=== PATIENT | male | born 1945 | race African-American/Black ===

== ENCOUNTER 2021-11-12 04:36 | Day surgery (SDC) | payer OTHER ==
[2021-11-10 13:51] VITALS: BMI 31.6
[2021-11-12 09:48] VITALS: TEMP 97.8
[2021-11-12 12:23] LABS: INR 1.27 (0.83-1.09); PROTHROMBIN TIME (PATIENT) 14.6 SEC (9.7-13.0)
[2021-11-12] MEDS ORDERED: ACETAMINOPHEN 325 MG TABLET (FP) PO ONE (13:30)
[2021-11-12 14:38] LABS: BF GLUCOSE (CSF ONLY) 96 mg/dL (40-70)
[2021-11-12 15:18] LABS: CSF APPEARANCE CLEAR (CLEAR); CSF COLOR COLORLESS (COLORLESS)
[2021-11-12 15:19] LABS: CSF WBC 1 mm3 (0-5)
[2021-11-12 15:26] VITALS: RESP 20
[2021-11-12 15:35] VITALS: BP 156/96; PULSE 79
[2021-11-16 17:07] LABS: ALBUMIN SERUM 4.1 g/dL (3.7-4.7); CSF IGG INDEX 0.3 (0.0-0.7); IGG CSF. 4.5 mg/dL (0.0-10.3); IGG/ALB RATIO CSF 0.12 (0.00-0.25); MYELIN BASIC PROTEIN,CSF 9.8 ng/mL (0.0-5.4)
== END 2021-11-12 15:05 | disposition home or self-care (01) ==
LOC: JRADIR 04:36
PROVIDERS: ATTEND Internal Medicine
PROC: 009U3ZX Drainage of Spinal Canal, Percutaneous Approach, Diagnostic (ICD-10-PCS; principal; 2021-11-12)
DX: G62.9 Polyneuropathy, unspecified (principal)
CPT/HCPCS: 36415; 62272; 82784; 82787; 82945; 83873; 83916; 84157; 85610

== ENCOUNTER 2022-01-14 08:25 | Day surgery (SDC) | payer OTHER ==
[2022-01-14] MEDS ORDERED: ACETAMINOPHEN 325 MG TABLET (FP) PO ONE (10:00)
[2022-01-14] MEDS ORDERED: diphenhydrAMINE HCL 25 MG CAPSULE (FP) PO ONE (10:00)
[2022-01-14] MEDS ORDERED: IMMUN GLOB G(IGG)/PRO/IGA 0-50 600 ML, IMMUN GLOB G(IGG)/PRO/IGA 0-50 100 ML IVPB ONE (10:30)
[2022-01-14 11:38] VITALS: RESP 20
[2022-01-14 11:39] VITALS: TEMP 97.8
[2022-01-14 16:34] VITALS: BP 147/89; PULSE 72
== END 2022-01-14 16:30 ==
LOC: JINFUSION 08:25 → J7W 08:25 → JINFUSION 16:30
PROVIDERS: ATTEND Psychiatry & Neurology Psychiatry
PROC: 3E033GC Introduction of Other Therapeutic Substance into Peripheral Vein, Percutaneous Approach (ICD-10-PCS; principal; 2022-01-14)
DX: G61.81 Chronic inflammatory demyelinating polyneuritis (principal)
CPT/HCPCS: 96365; 96366; J1459

== ENCOUNTER 2022-01-15 08:24 | Day surgery (SDC) | payer OTHER ==
[2022-01-15] MEDS ORDERED: diphenhydrAMINE HCL 25 MG CAPSULE (FP) PO ONE (09:30)
[2022-01-15] MEDS ORDERED: ACETAMINOPHEN 325 MG TABLET (FP) PO ONE (09:30)
[2022-01-15] MEDS ORDERED: IMMUN GLOB G(IGG)/PRO/IGA 0-50 600 ML, IMMUN GLOB G(IGG)/PRO/IGA 0-50 100 ML IVPB ONE (10:00)
[2022-01-15 16:25] VITALS: TEMP 98.4
[2022-01-15 17:56] VITALS: BP 188/106; PULSE 78; RESP 18
== END 2022-01-15 17:15 | disposition home or self-care (01) ==
LOC: JINFUSION 08:24 → J7W 08:24 → JINFUSION 17:15
PROVIDERS: ATTEND Psychiatry & Neurology Psychiatry
PROC: 3E033GC Introduction of Other Therapeutic Substance into Peripheral Vein, Percutaneous Approach (ICD-10-PCS; principal; 2022-01-15)
DX: G61.81 Chronic inflammatory demyelinating polyneuritis (principal)
CPT/HCPCS: 96365; 96366; J1459

== ENCOUNTER 2022-02-18 09:28 | Day surgery (SDC) | payer OTHER ==
[2022-02-18] MEDS ORDERED: ACETAMINOPHEN 325 MG TABLET (FP) PO ONE (09:30)
[2022-02-18] MEDS ORDERED: diphenhydrAMINE HCL 25 MG CAPSULE (FP) PO ONE (09:30)
[2022-02-18] MEDS ORDERED: IMMUN GLOB G(IGG)/PRO/IGA 0-50 600 ML, IMMUN GLOB G(IGG)/PRO/IGA 0-50 100 ML IVPB ONE (10:00)
[2022-02-18 16:06] VITALS: TEMP 97.7
[2022-02-18 17:21] VITALS: BP 171/96; PULSE 75; RESP 20
== END 2022-02-18 17:05 | disposition home or self-care (01) ==
LOC: JINFUSION 09:28 → J7W 09:29 → JINFUSION 17:05
PROVIDERS: ATTEND Psychiatry & Neurology Psychiatry
PROC: 3E033GC Introduction of Other Therapeutic Substance into Peripheral Vein, Percutaneous Approach (ICD-10-PCS; principal; 2022-02-18)
DX: G61.81 Chronic inflammatory demyelinating polyneuritis (principal)
CPT/HCPCS: 96365; 96366; J1459

== ENCOUNTER 2022-02-19 08:03 | Day surgery (SDC) | payer OTHER ==
[2022-02-19] MEDS ORDERED: ACETAMINOPHEN 325 MG TABLET (FP) PO ONE (09:30)
[2022-02-19] MEDS ORDERED: diphenhydrAMINE HCL 25 MG CAPSULE (FP) PO ONE (09:30)
[2022-02-19] MEDS ORDERED: IMMUN GLOB G(IGG)/PRO/IGA 0-50 600 ML, IMMUN GLOB G(IGG)/PRO/IGA 0-50 100 ML IVPB ONE (10:00)
[2022-02-19 16:12] VITALS: PULSE 72; RESP 20; TEMP 98
[2022-02-19 16:22] VITALS: BP 161/96
== END 2022-02-19 15:25 | disposition home or self-care (01) ==
LOC: JINFUSION 08:03 → J7W 08:27 → JINFUSION 15:25
PROVIDERS: ATTEND Psychiatry & Neurology Psychiatry
PROC: 3E033GC Introduction of Other Therapeutic Substance into Peripheral Vein, Percutaneous Approach (ICD-10-PCS; principal; 2022-02-19)
DX: G61.81 Chronic inflammatory demyelinating polyneuritis (principal)
CPT/HCPCS: 96365; 96366; J1459

== ENCOUNTER 2022-03-25 08:15 | Day surgery (SDC) | payer OTHER ==
[2022-03-25] MEDS ORDERED: diphenhydrAMINE HCL 25 MG CAPSULE (FP) PO ONE (09:30)
[2022-03-25] MEDS ORDERED: ACETAMINOPHEN 325 MG TABLET (FP) PO ONE (09:30)
[2022-03-25] MEDS ORDERED: IMMUN GLOB G(IGG)/PRO/IGA 0-50 600 ML, IMMUN GLOB G(IGG)/PRO/IGA 0-50 100 ML IVPB ONE (10:00)
[2022-03-25 17:30] VITALS: RESP 20; TEMP 98.1
[2022-03-25 17:36] VITALS: BP 135/84; PULSE 75
== END 2022-03-25 17:25 | disposition home or self-care (01) ==
LOC: JINFUSION 08:15 → J7W 08:16 → JINFUSION 17:25
PROVIDERS: ATTEND Psychiatry & Neurology Psychiatry
PROC: 3E033GC Introduction of Other Therapeutic Substance into Peripheral Vein, Percutaneous Approach (ICD-10-PCS; principal; 2022-03-25)
DX: G61.81 Chronic inflammatory demyelinating polyneuritis (principal)
CPT/HCPCS: 96365; 96366; J1459

== ENCOUNTER 2022-03-26 08:16 | Day surgery (SDC) | payer OTHER ==
[2022-03-26] MEDS ORDERED: ACETAMINOPHEN 325 MG TABLET (FP) PO ONE (09:30)
[2022-03-26] MEDS ORDERED: diphenhydrAMINE HCL 25 MG CAPSULE (FP) PO ONE (09:30)
[2022-03-26] MEDS ORDERED: IMMUN GLOB G(IGG)/PRO/IGA 0-50 600 ML, IMMUN GLOB G(IGG)/PRO/IGA 0-50 100 ML IVPB ONE (10:00)
[2022-03-26 18:46] VITALS: TEMP 98.2
[2022-03-26 18:59] VITALS: BP 142/84; PULSE 74; RESP 18
== END 2022-03-26 17:25 | disposition home or self-care (01) ==
LOC: JINFUSION 08:16 → J7W 08:17 → JINFUSION 17:25
PROVIDERS: ATTEND Psychiatry & Neurology Psychiatry
PROC: 3E033GC Introduction of Other Therapeutic Substance into Peripheral Vein, Percutaneous Approach (ICD-10-PCS; principal; 2022-03-26)
DX: G61.81 Chronic inflammatory demyelinating polyneuritis (principal)
CPT/HCPCS: 96365; 96366; J1459

== ENCOUNTER 2022-04-29 07:40 | Day surgery (SDC) | payer OTHER ==
[2022-04-29] MEDS ORDERED: diphenhydrAMINE HCL 25 MG CAPSULE (FP) PO ONE (08:30)
[2022-04-29] MEDS ORDERED: ACETAMINOPHEN 325 MG TABLET (FP) PO ONE (08:30)
[2022-04-29] MEDS ORDERED: IMMUN GLOB IVPB ONE (09:00)
[2022-04-29] MEDS ORDERED: [UNRECOGNIZED DRUG - OTHER] IVPB ONE (09:00)
[2022-04-29] MEDS ORDERED: PRO IVPB ONE (09:00)
[2022-04-29] MEDS ORDERED: IGA IVPB ONE (09:00)
[2022-04-29 14:58] VITALS: RESP 20
[2022-04-29 17:26] VITALS: BP 173/106; PULSE 72; TEMP 98.1
== END 2022-04-29 17:15 | disposition home or self-care (01) ==
LOC: JINFUSION 07:40
PROVIDERS: ATTEND Psychiatry & Neurology Psychiatry
PROC: 3E033GC Introduction of Other Therapeutic Substance into Peripheral Vein, Percutaneous Approach (ICD-10-PCS; principal; 2022-04-29)
DX: G61.81 Chronic inflammatory demyelinating polyneuritis (principal)
CPT/HCPCS: 96365; 96366; J1459

== ENCOUNTER 2022-04-30 07:31 | Day surgery (SDC) | payer OTHER ==
[2022-04-30] MEDS ORDERED: diphenhydrAMINE HCL 25 MG CAPSULE (FP) PO ONE (09:00)
[2022-04-30] MEDS ORDERED: ACETAMINOPHEN 325 MG TABLET (FP) PO ONE (09:00)
[2022-04-30] MEDS ORDERED: IMMUN GLOB G(IGG)/PRO/IGA 0-50 400 ML, IMMUN GLOB G(IGG)/PRO/IGA 0-50 200 ML, IMMUN GLOB G IVPB ONE (09:30)
[2022-04-30 16:17] VITALS: TEMP 98
[2022-04-30 16:23] VITALS: BP 140/87; PULSE 73; RESP 18
== END 2022-04-30 16:26 | disposition home or self-care (01) ==
LOC: JINFUSION 07:31 → J7W 07:36 → JINFUSION 16:26
PROVIDERS: ATTEND Psychiatry & Neurology Psychiatry
PROC: 3E033GC Introduction of Other Therapeutic Substance into Peripheral Vein, Percutaneous Approach (ICD-10-PCS; principal; 2022-04-30)
DX: G61.81 Chronic inflammatory demyelinating polyneuritis (principal)
CPT/HCPCS: 96365; 96366; 96372; J1459

== ENCOUNTER 2022-06-03 07:33 | Day surgery (SDC) | payer OTHER ==
[2022-06-03] MEDS ORDERED: ACETAMINOPHEN 325 MG TABLET (FP) PO ONE (08:00)
[2022-06-03] MEDS ORDERED: diphenhydrAMINE HCL 25 MG CAPSULE (FP) PO ONE (08:00)
[2022-06-03] MEDS ORDERED: PRO IVPB ONE ×2 (08:15)
[2022-06-03] MEDS ORDERED: [UNRECOGNIZED DRUG - OTHER] IVPB ONE ×2 (08:15)
[2022-06-03] MEDS ORDERED: IMMUN GLOB IVPB ONE ×2 (08:15)
[2022-06-03] MEDS ORDERED: IGA IVPB ONE ×2 (08:15)
[2022-06-03 18:33] VITALS: TEMP 97.3
[2022-06-03 18:39] VITALS: BP 142/94; PULSE 72; RESP 18
== END 2022-06-03 17:15 | disposition home or self-care (01) ==
LOC: JINFUSION 07:33
PROVIDERS: ATTEND Psychiatry & Neurology Psychiatry
PROC: 3E033GC Introduction of Other Therapeutic Substance into Peripheral Vein, Percutaneous Approach (ICD-10-PCS; principal; 2022-06-03)
DX: G61.81 Chronic inflammatory demyelinating polyneuritis (principal)
CPT/HCPCS: 96365; 96366; J1459

== ENCOUNTER 2022-06-04 07:37 | Day surgery (SDC) | payer OTHER ==
[~2022-06-04 07:37] MED LIST: diphenhydrAMINE HCL 25 MG CAPSULE (FP) PO ONE
[2022-06-04] MEDS ORDERED: IMMUN GLOB IVPB ONE (09:00)
[2022-06-04] MEDS ORDERED: ACETAMINOPHEN 325 MG TABLET (FP) PO ONE (09:00)
[2022-06-04] MEDS ORDERED: PRO IVPB ONE (09:00)
[2022-06-04] MEDS ORDERED: [UNRECOGNIZED DRUG - OTHER] IVPB ONE (09:00)
[2022-06-04] MEDS ORDERED: IGA IVPB ONE (09:00)
[2022-06-04] MEDS ORDERED: diphenhydrAMINE HCL 25 MG CAPSULE (FP) PO ONE (09:00)
[2022-06-04 18:58] VITALS: PULSE 73; TEMP 98.1
[2022-06-04 19:02] VITALS: BP 159/56; RESP 18
== END 2022-06-04 17:25 | disposition home or self-care (01) ==
LOC: JINFUSION 07:37
PROVIDERS: ATTEND Psychiatry & Neurology Psychiatry
PROC: 3E033GC Introduction of Other Therapeutic Substance into Peripheral Vein, Percutaneous Approach (ICD-10-PCS; principal; 2022-06-04)
DX: G61.81 Chronic inflammatory demyelinating polyneuritis (principal)
CPT/HCPCS: 96365; 96366; J1459

== ENCOUNTER 2022-07-09 19:48 | Inpatient (IN) | payer OTHER ==
[2022-07-09 21:43] LABS: BASO % 0.1 % (0-2.0); EOS % 0.1 % (0-4.5); HEMATOCRIT 31.9 % (35.4-49); HEMOGLOBIN 10.5 GM/dL (11.7-16.9); LYMPH % 5.1 % (8-40); MCH 26.2 pg (25.7-33.7); MEAN CELL VOLUME 79.5 fl (80-96); MEAN PLT VOLUME 9.1 fl (7.5-11.1); MONO % 9.2 % (3.8-10.2); NEUT % 85.5 % (42.8-82.8); PLATELET COUNT 133 10^3/uL (134-434); RBC 4.02 M/mm3 (4.00-5.60); RDW 17.4 % (11.9-15.9); WHITE BLOOD COUNT 8.3 K/mm3 (4.0-10.0)
[2022-07-09 21:50] LABS: INR 1.58 (0.83-1.09); PROTHROMBIN TIME (PATIENT) 18.2 SEC (9.7-13.0)
[2022-07-09 21:53] LABS: ACTIVATED PTT 30.3 SECONDS (25.2-36.5)
[2022-07-09 22:03] LABS: POTASSIUM 4.5 mmol/L (3.5-5.1)
[2022-07-09 22:05] LABS: ALBUMIN 2.6 g/dl (3.4-5.0); BLOOD UREA NITROGEN 23.1 mg/dL (7-18); CALCIUM 8.2 mg/dL (8.5-10.1)
[2022-07-09 22:10] LABS: BILIRUBIN,TOTAL 0.5 mg/dL (0.2-1); TOT PROT 9.5 g/dl (6.4-8.2)
[2022-07-09 22:13] LABS: N-TERMINAL BNP 2314.4 pg/ml (5-450)
[2022-07-09] MEDS ORDERED: ACETAMINOPHEN 1000 MG/100 ML BAG IVPB ONE (22:36)
[2022-07-09] MEDS ORDERED: VANCOMYCIN/WATER 2 GM/400 ML PREMIX BAG (RESTRICTED TO ID ONLY) IVPB ONE (23:00)
[2022-07-09] MEDS ORDERED: PIPERACILLIN/TAZOB 4.5 GM 4.5 GM in DEXTROSE 5%-WATER 100 ML IVPB ONE (23:00)
[2022-07-09] MEDS ORDERED: ACETAMINOPHEN INJECTION 100 ML IVPB ONE (23:07)
[2022-07-09 23:23] LABS: EPI CELLS 6 /uL (0-25.1); HYALINE CASTS 2 /uL (0-3.1); PH,URINE 5.5 (5.0-8.0); URINE APPEARANCE CLOUDY; URINE BACTERIA >9,000 /uL (0-1359); URINE BILIRUBIN NEGATIVE (NEGATIVE); URINE COLOR DK YELLOW; URINE GLUCOSE (UA) NEGATIVE (NEGATIVE); URINE KETONE NEGATIVE (NEGATIVE); URINE LEUK ESTERASE 2+ (NEGATIVE); URINE NITRITE POSITIVE (NEGATIVE); URINE PROTEIN 2+ (NEGATIVE); URINE WBC 1413 /uL (0-25.8)
[2022-07-09 23:24] LABS: URINE RBC 46.1 /uL (0-23.9)
[2022-07-10] MEDS ORDERED: VANCOMYCIN/WATER 2 GRAMS 2,000 MG/400 ML PIGGYBACK IVPB ONE
[2022-07-10 01:24] LABS: VENOUS BASE EXCESS 3.7 mmol/L (-2-2); VENOUS O2 SATURATION 93.1 % (70-80); VENOUS PH 7.278 (7.310-7.410)
[2022-07-10 01:25] LABS: VENOUS PCO2 70.2 mmHg (38-52)
[2022-07-10 06:38] LABS: ARTERIAL BLD GAS O2 SATURATION 99.3 % (95-98); ARTERIAL BLOOD GAS BASE EXCESS 4.5 mmol/L (-2-2); ARTERIAL BLOOD GAS PO2 224.1 mmHg (80-100); ARTERIAL BLOOD GAS pH 7.263 (7.350-7.450)
[2022-07-10] MEDS ORDERED: ALBUTEROL SO4 2.5/IPRATROPIUM 0.5 INH SOL 3 ML VIAL.NEB. NEB PRN (06:41)
[2022-07-10 06:43] LABS: ALLENS TEST POSITIVE
[2022-07-10 06:44] LABS: VENT MODE S/T; VENT RATE 12
[2022-07-10 07:00] LABS: BASO % 0.2 % (0-2.0); EOS % 0.7 % (0-4.5); HEMATOCRIT 30.6 % (35.4-49); HEMOGLOBIN 10.6 GM/dL (11.7-16.9); LYMPH % 12.7 % (8-40); MCH 27.2 pg (25.7-33.7); MCHC 34.4 g/dl (32.0-35.9); MEAN CELL VOLUME 78.9 fl (80-96); MEAN PLT VOLUME 9.1 fl (7.5-11.1); MONO % 12.2 % (3.8-10.2); NEUT % 74.2 % (42.8-82.8); PLATELET COUNT 129 10^3/uL (134-434); RBC 3.89 M/mm3 (4.00-5.60); RDW 17.3 % (11.9-15.9); WHITE BLOOD COUNT 7.4 K/mm3 (4.0-10.0)
[2022-07-10 07:55] LABS: POTASSIUM 4.6 mmol/L (3.5-5.1)
[2022-07-10 07:57] LABS: CALCIUM 8.5 mg/dL (8.5-10.1)
[2022-07-10 07:58] LABS: ALBUMIN 2.6 g/dl (3.4-5.0); BLOOD UREA NITROGEN 22.4 mg/dL (7-18); MAGNESIUM 1.9 mg/dL (1.8-2.4)
[2022-07-10 08:01] LABS: CREATININE 0.8 mg/dL (0.55-1.3)
[2022-07-10 08:02] LABS: TOT PROT 9.2 g/dl (6.4-8.2)
[2022-07-10 08:03] LABS: BILIRUBIN,TOTAL 0.4 mg/dL (0.2-1)
[2022-07-10] MEDS: COLLAGENASE CLOSTRIDIUM HIST. 30 GRAMS TUBE TP SCH (10:12)
[2022-07-10] MEDS: FUROSEMIDE 40 MG TABLET (FP) PO SCH (10:12)
[2022-07-10] MEDS: FAMOTIDINE 20 MG TABLET PO SCH ×2 (10:12→21:12)
[2022-07-10] MEDS: APIXABAN 5 MG TABLET PO SCH ×2 (10:12→21:12)
[2022-07-10] MEDS: ESCITALOPRAM OXALATE 10 MG TABLET PO SCH (10:12)
[2022-07-10 12:21] VITALS: BMI 33.0
[2022-07-10] MEDS ORDERED: VANCOMYCIN/WATER FOR INJ (PEG) 1,000 MG/200 ML BAG IVPB SCH (13:00)
[2022-07-10] MEDS: PIPERACILLIN/TAZOB 3.375 GM 3.375 GM in DEXTROSE 5%-WATER - 50 ML IVPB SCH ×2 (14:08→18:28)
[2022-07-10] MEDS: INSULIN SLIDING SCALE (NOVOLOG) 1 VIAL SQ SCH ×2 (17:32→21:12)
[2022-07-10] MEDS: AMINO ACIDS/PROTEIN HYDROLYS 30 ML LIQUID.PKT PO SCH (18:05)
[2022-07-10] MEDS: ATORVASTATIN CA 40 MG TABLET (FP) PO SCH (21:12)
[2022-07-10] MEDS: MELATONIN 5 MG TABLETS PO SCH (21:12)
[2022-07-11] MEDS: PIPERACILLIN/TAZOB 3.375 GM 3.375 GM in DEXTROSE 5%-WATER - 50 ML IVPB SCH ×3 (01:01→17:22)
[2022-07-11] MEDS: INSULIN SLIDING SCALE (NOVOLOG) 1 VIAL SQ SCH ×4 (06:40→21:47)
[2022-07-11] MEDS ORDERED: oxyCODONE HCL 5 MG TABLET PO ONE (07:15)
[2022-07-11] MEDS ORDERED: ACETAMINOPHEN 325 MG TABLET (FP) PO ONE (07:15)
[2022-07-11 08:19] LABS: HEMATOCRIT 32.9 % (35.4-49); HEMOGLOBIN 11.1 GM/dL (11.7-16.9); MCH 26.8 pg (25.7-33.7); MCHC 33.6 g/dl (32.0-35.9); MEAN CELL VOLUME 79.8 fl (80-96); MEAN PLT VOLUME 8.5 fl (7.5-11.1); PLATELET COUNT 114 10^3/uL (134-434); RBC 4.13 M/mm3 (4.00-5.60); RDW 17.7 % (11.9-15.9)
[2022-07-11 08:25] LABS: POTASSIUM 4.4 mmol/L (3.5-5.1)
[2022-07-11 08:33] LABS: CALCIUM 8.5 mg/dL (8.5-10.1)
[2022-07-11 08:34] LABS: BLOOD UREA NITROGEN 17.5 mg/dL (7-18)
[2022-07-11 08:37] LABS: CREATININE 0.7 mg/dL (0.55-1.3)
[2022-07-11] MEDS: ASCORBIC ACID 500 MG TABLET (FP) PO SCH (10:29)
[2022-07-11] MEDS: FAMOTIDINE 20 MG TABLET PO SCH ×2 (10:29→21:47)
[2022-07-11] MEDS: AMINO ACIDS/PROTEIN HYDROLYS 30 ML LIQUID.PKT PO SCH ×3 (10:29→17:22)
[2022-07-11] MEDS: ESCITALOPRAM OXALATE 10 MG TABLET PO SCH (10:29)
[2022-07-11] MEDS: APIXABAN 5 MG TABLET PO SCH ×2 (10:29→21:47)
[2022-07-11] MEDS: COLLAGENASE CLOSTRIDIUM HIST. 30 GRAMS TUBE TP SCH (17:22)
[2022-07-11] MEDS: ATORVASTATIN CA 40 MG TABLET (FP) PO SCH (21:47)
[2022-07-11] MEDS: MELATONIN 5 MG TABLETS PO SCH (21:47)
[2022-07-12] MEDS: PIPERACILLIN/TAZOB 3.375 GM 3.375 GM in DEXTROSE 5%-WATER - 50 ML IVPB SCH ×3 (01:16→17:59)
[2022-07-12] MEDS: INSULIN SLIDING SCALE (NOVOLOG) 1 VIAL SQ SCH ×4 (06:14→22:00)
[2022-07-12] MEDS: AMINO ACIDS/PROTEIN HYDROLYS 30 ML LIQUID.PKT PO SCH ×3 (08:00→17:59)
[2022-07-12] MEDS ORDERED: REGADENOSON 0.4 MG/5 ML PRE-FILLED SYRINGE IVPUSH ONE ×2 (09:14→10:00)
[2022-07-12] MEDS: ESCITALOPRAM OXALATE 10 MG TABLET PO SCH (11:36)
[2022-07-12] MEDS: APIXABAN 5 MG TABLET PO SCH ×2 (11:36→21:35)
[2022-07-12] MEDS: FAMOTIDINE 20 MG TABLET PO SCH ×2 (11:36→21:35)
[2022-07-12] MEDS: FUROSEMIDE 40 MG TABLET (FP) PO SCH (11:36)
[2022-07-12] MEDS: COLLAGENASE CLOSTRIDIUM HIST. 30 GRAMS TUBE TP SCH (11:36)
[2022-07-12] MEDS: ASCORBIC ACID 500 MG TABLET (FP) PO SCH (11:37)
[2022-07-12] MEDS ORDERED: ACETAMINOPHEN 500 MG TABLET (FP) PO ONE (20:06)
[2022-07-12] MEDS: MELATONIN 5 MG TABLETS PO SCH (21:35)
[2022-07-12] MEDS: ATORVASTATIN CA 40 MG TABLET (FP) PO SCH (21:35)
[2022-07-13] MEDS: PIPERACILLIN/TAZOB 3.375 GM 3.375 GM in DEXTROSE 5%-WATER - 50 ML IVPB SCH ×2 (02:01→09:42)
[2022-07-13] MEDS: INSULIN SLIDING SCALE (NOVOLOG) 1 VIAL SQ SCH ×2 (06:25→11:28)
[2022-07-13] MEDS: AMINO ACIDS/PROTEIN HYDROLYS 30 ML LIQUID.PKT PO SCH ×2 (09:40→12:47)
[2022-07-13] MEDS: APIXABAN 5 MG TABLET PO SCH (09:41)
[2022-07-13] MEDS: ESCITALOPRAM OXALATE 10 MG TABLET PO SCH (09:41)
[2022-07-13] MEDS: FAMOTIDINE 20 MG TABLET PO SCH (09:41)
[2022-07-13] MEDS: ASCORBIC ACID 500 MG TABLET (FP) PO SCH (09:42)
[2022-07-13] MEDS: COLLAGENASE CLOSTRIDIUM HIST. 30 GRAMS TUBE TP SCH (09:43)
[2022-07-13] MEDS ORDERED: FUROSEMIDE 40 MG TABLET (FP) PO SCH (12:45)
[2022-07-13 14:02] VITALS: BP 170/105; PULSE 74; RESP 24; TEMP 98.5
== END 2022-07-13 15:48 | disposition short-term general hospital (02) | DRG 280 ==
LOC: JER 19:48 → JERBED 23:05 → J2W 07-10 04:03
PROVIDERS: ADMIT Internal Medicine; ATTEND Family Medicine
DX: I21.4 Non-ST elevation (NSTEMI) myocardial infarction (principal); J96.20 Acute and chronic respiratory failure, unspecified whether with hypoxia or hypercapnia; I50.42 Chronic combined systolic (congestive) and diastolic (congestive) heart failure; N39.0 Urinary tract infection, site not specified; I25.10 Atherosclerotic heart disease of native coronary artery without angina pectoris; E78.5 Hyperlipidemia, unspecified; E11.9 Type 2 diabetes mellitus without complications; E66.9 Obesity, unspecified; Z68.33 Body mass index [BMI] 33.0-33.9, adult; E87.70 Fluid overload, unspecified
CPT/HCPCS: 0241U-QW; 36415; 36600; 70450-TC; 71045-TC-FY; 73610-TC-LT-FY; 73630-TC-LT; 78452-TC; 80048; 80053; 81003; 82550; 82553; 82803; 82962; 83605; 83735; 83880; 84484; 85025; 85027; 85379; 85610; 85730; 86850; 86900; 86901; 87040; 87070; 87076; 87086; 87186; 87205; 93005; 93010; 93017; 94660; 96365; 96366; 99285-25; A9502; J1459; J2785

== ENCOUNTER 2022-07-23 08:46 | Inpatient (IN) | payer OTHER ==
[2022-07-23 09:46] LABS: VENOUS BASE EXCESS 5.1 mmol/L (-2-2); VENOUS O2 SATURATION 90.3 % (70-80)
[2022-07-23 09:56] LABS: VENOUS PCO2 120.5 mmHg (38-52); VENOUS PH 7.121 (7.310-7.410)
[2022-07-23 09:58] LABS: BASO % 0.1 % (0-2.0); EOS % 0.1 % (0-4.5); HEMATOCRIT 34.4 % (35.4-49); LYMPH % 9.2 % (8-40); MCH 25.8 pg (25.7-33.7); MCHC 32.1 g/dl (32.0-35.9); MEAN CELL VOLUME 80.3 fl (80-96); MEAN PLT VOLUME 8.6 fl (7.5-11.1); MONO % 7.1 % (3.8-10.2); NEUT % 83.5 % (42.8-82.8); PLATELET COUNT 201 10^3/uL (134-434); RBC 4.28 M/mm3 (4.00-5.60); RDW 16.8 % (11.9-15.9); WHITE BLOOD COUNT 11.1 K/mm3 (4.0-10.0)
[2022-07-23 10:00] LABS: INR 1.59 (0.83-1.09); PROTHROMBIN TIME (PATIENT) 18.4 SEC (9.7-13.0)
[2022-07-23] MEDS ORDERED: methylPREDNISolone NA SUCC 125 MG/2 ML VIAL IVPUSH SCH (10:00)
[2022-07-23 10:04] LABS: ACTIVATED PTT 31.2 SECONDS (25.2-36.5)
[2022-07-23 10:05] LABS: ARTERIAL BLD GAS O2 SATURATION 98.7 % (95-98); ARTERIAL BLOOD GAS BASE EXCESS 4.1 mmol/L (-2-2); ARTERIAL BLOOD GAS PO2 198.9 mmHg (80-100)
[2022-07-23] MEDS ORDERED: PIPERACILLIN/TAZOB 3.375 GM 3.375 GM in DEXTROSE 5%-WATER - 50 ML IVPB ONE (10:06)
[2022-07-23] MEDS ORDERED: VANCOMYCIN 1 GM in D5W (PRE-DOCKED) 1,000 MG/250 ML (RESTRICTED TO ID ONLY IVPB ONE (10:06)
[2022-07-23 10:08] LABS: ARTERIAL BLOOD GAS pH 7.057 (7.350-7.450)
[2022-07-23] MEDS ORDERED: RAPID SEQUENCE INTUBATION KIT NR ONE (10:12)
[2022-07-23] MEDS ORDERED: EPINEPHrine 1:10,000 (P-F SYR) 1 MG/10 ML DISP.SYRIN ONE (10:14)
[2022-07-23] MEDS ORDERED: ROCURONIUM BROMIDE 50 MG/5 ML SYRINGE ONE (10:18)
[2022-07-23] MEDS ORDERED: KETAMINE HCL 200 MG/20 ML VIAL IVPUSH ONE (10:23)
[2022-07-23] MEDS ORDERED: KETAMINE HCL 200 MG/20 ML VIAL ONE (10:24)
[2022-07-23 10:27] LABS: ALBUMIN 2.8 g/dl (3.4-5.0); BLOOD UREA NITROGEN 19.3 mg/dL (7-18); CALCIUM 8.5 mg/dL (8.5-10.1); MAGNESIUM 1.7 mg/dL (1.8-2.4)
[2022-07-23 10:30] LABS: CREATININE 1.1 mg/dL (0.55-1.3)
[2022-07-23] MEDS ORDERED: NOREPINEPHRINE BITARTRATE 4,000 MCG in DEXTROSE 5%-WATER - 496 ML IV SCH (10:30)
[2022-07-23 10:32] LABS: BILIRUBIN,TOTAL 0.5 mg/dL (0.2-1); TOT PROT 8.4 g/dl (6.4-8.2)
[2022-07-23 10:35] LABS: N-TERMINAL BNP 2042.2 pg/ml (5-450)
[2022-07-23 10:38] LABS: LACTIC ACID 2.5 mmol/L (0.4-2.0)
[2022-07-23] MEDS ORDERED: PIPERACILLIN/TAZOB 3.375 GM 3.375 GM/50 ML BAG IVPB ONE (11:14)
[2022-07-23] MEDS ORDERED: VANCOMYCIN/WATER FOR INJ (PEG) 1,000 MG/200 ML BAG IVPB ONE (11:14)
[2022-07-23] MEDS ORDERED: ENOXAPARIN NA (PORCINE) 40 MG/0.4 ML DISP.SYRIN SQ SCH (11:30)
[2022-07-23 12:10] LABS: ARTERIAL BLD GAS O2 SATURATION 92.2 % (95-98); ARTERIAL BLOOD GAS BASE EXCESS 6.2 mmol/L (-2-2); ARTERIAL BLOOD GAS PO2 67.4 mmHg (80-100); ARTERIAL BLOOD GAS pH 7.357 (7.350-7.450)
[2022-07-23 12:13] LABS: VENT MODE A/C; VENT RATE 22
[2022-07-23] MEDS ORDERED: MIDAZOLAM IN 0.9 % SOD.CHLORID 1 MG/1 ML PLAST..BAG ONE (12:39)
[2022-07-23] MEDS ORDERED: FENTANYL NS IVPB 500 MCG/100 ML BAG IVPB SCH (12:45)
[2022-07-23] MEDS: MIDAZOLAM IN 0.9 % SOD.CHLORID 100 MG/100 ML PLAST..BAG IVPB SCH (12:54)
[2022-07-23] MEDS ORDERED: VASOPRESSIN 20 UNITS/ML VIAL IV ONE (14:55)
[2022-07-23] MEDS ORDERED: PANTOPRAZOLE SODIUM 40 MG VIAL IVPUSH ONE (15:33)
[2022-07-23] MEDS: INSULIN SLIDING SCALE (NOVOLOG) 1 VIAL SQ SCH (16:30)
[2022-07-23] MEDS ORDERED: ALBUTEROL SO4 2.5/IPRATROPIUM 0.5 INH SOL 3 ML VIAL.NEB. NEB PRN (16:30)
[2022-07-23] MEDS ORDERED: NOREPINEPHRINE BITARTRATE 4 MG/4 ML ML IV ONE (17:30)
[2022-07-23] MEDS: PIPERACILLIN/TAZOB 3.375 GM 3.375 GM in DEXTROSE 5%-WATER - 50 ML IVPB SCH (18:04)
[2022-07-23] MEDS: ESCITALOPRAM OXALATE 10 MG TABLET PO SCH (18:05)
[2022-07-23] MEDS: PANTOPRAZOLE SODIUM 40 MG VIAL IVPUSH SCH (18:05)
[2022-07-23] MEDS: MUPIROCIN 2% TOPICAL OINTMENT FOR DECOLONIZATION NS SCH ×2 (18:12→21:52)
[2022-07-23] MEDS ORDERED: LORazepam 2 MG/ML SDV VIAL IVPUSH ONE (18:35)
[2022-07-23] MEDS ORDERED: PIPERACILLIN/TAZOB 3.375 GM 3.375 GM in DEXTROSE 5%-WATER - 50 ML IVPB SCH (21:00)
[2022-07-23 21:02] LABS: EPI CELLS >36 /uL (0-25.1); HYALINE CASTS 2 /uL (0-3.1); PH,URINE 5.5 (5.0-8.0); URINE APPEARANCE CLOUDY; URINE BACTERIA >9,000 /uL (0-1359); URINE BILIRUBIN NEGATIVE (NEGATIVE); URINE COLOR YELLOW; URINE GLUCOSE (UA) NEGATIVE (NEGATIVE); URINE KETONE NEGATIVE (NEGATIVE); URINE LEUK ESTERASE NEGATIVE (NEGATIVE); URINE NITRITE NEGATIVE (NEGATIVE); URINE PROTEIN 2+ (NEGATIVE); URINE RBC 20 /uL (0-23.9); URINE WBC 52 /uL (0-25.8)
[2022-07-23] MEDS: CHLORHEXIDINE GLUCONATE 4% CLEANSER FOR DECOLONIZATION TP SCH (21:51)
[2022-07-23] MEDS: APIXABAN 5 MG TABLET PO SCH (21:52)
[2022-07-23] MEDS: ATORVASTATIN CA 40 MG TABLET (FP) PO SCH (21:52)
[2022-07-23] MEDS ORDERED: ACETAMINOPHEN 1000 MG/100 ML BAG IVPB PRN (22:34)
[2022-07-23] MEDS ORDERED: VANCOMYCIN PREMIX 1.75 GM 1,750 MG/350 ML PIGGYBACK IVPB ONE (23:00)
[2022-07-23] MEDS: NOREPINEPHRINE BITARTRATE/D5W 8 MG/250 ML BAG IVPB SCH (23:46)
[2022-07-24] MEDS: MIDAZOLAM IN 0.9 % SOD.CHLORID 100 MG/100 ML PLAST..BAG IVPB SCH
[2022-07-24] MEDS ORDERED: FUROSEMIDE 40 MG/4 ML INJECTABLE VIAL IVPUSH ONE (00:30)
[2022-07-24] MEDS: PIPERACILLIN/TAZOB 3.375 GM 3.375 GM in DEXTROSE 5%-WATER - 50 ML IVPB SCH ×3 (01:00→17:34)
[2022-07-24] MEDS: INSULIN SLIDING SCALE (NOVOLOG) 1 VIAL SQ SCH ×3 (06:37→16:47)
[2022-07-24 07:33] LABS: BASO % 0.2 % (0-2.0); HEMATOCRIT 30.7 % (35.4-49); HEMOGLOBIN 10.3 GM/dL (11.7-16.9); LYMPH % 5.8 % (8-40); MCH 26.1 pg (25.7-33.7); MCHC 33.5 g/dl (32.0-35.9); MEAN PLT VOLUME 9.7 fl (7.5-11.1); MONO % 7.5 % (3.8-10.2); NEUT % 86.5 % (42.8-82.8); PLATELET COUNT 177 10^3/uL (134-434); RBC 3.94 M/mm3 (4.00-5.60); RDW 17.1 % (11.9-15.9); WHITE BLOOD COUNT 16.9 K/mm3 (4.0-10.0)
[2022-07-24 08:03] LABS: CHLORIDE 95 mmol/L (98-107); POTASSIUM 3.9 mmol/L (3.5-5.1); SODIUM 135 mmol/L (136-145)
[2022-07-24 08:09] LABS: ALBUMIN 2.3 g/dl (3.4-5.0); ANION GAP 7 MMOL/L (8-16); BLOOD UREA NITROGEN 21.2 mg/dL (7-18); CALCIUM 8.2 mg/dL (8.5-10.1); CO2 33 mmol/L (21-32); GLUCOSE,RANDOM 145 mg/dL (74-106); MAGNESIUM 1.2 mg/dL (1.8-2.4)
[2022-07-24 08:12] LABS: SGPT/ALT 25 U/L (13-61)
[2022-07-24 08:13] LABS: CREATININE 1.1 mg/dL (0.55-1.3); SGOT/AST 33 U/L (15-37)
[2022-07-24 08:14] LABS: BILIRUBIN,TOTAL 1.1 mg/dL (0.2-1); TOT PROT 7.1 g/dl (6.4-8.2)
[2022-07-24 08:15] LABS: ALK PHOS 66 U/L (45-117)
[2022-07-24] MEDS: ESCITALOPRAM OXALATE 10 MG TABLET PO SCH (09:28)
[2022-07-24] MEDS: DEXMEDETOMIDINE PREMIX 400 MCG/100 ML BAG IVPB SCH (09:28)
[2022-07-24] MEDS: APIXABAN 5 MG TABLET PO SCH ×2 (09:28→21:37)
[2022-07-24] MEDS: PANTOPRAZOLE SODIUM 40 MG VIAL IVPUSH SCH (09:29)
[2022-07-24] MEDS ORDERED: SODIUM PHOSPHATE - 30 MM in SODIUM CHLORIDE 250 ML IVPB ONE (09:30)
[2022-07-24 09:44] LABS: ARTERIAL BLD GAS O2 SATURATION 97.8 % (95-98); ARTERIAL BLOOD GAS BASE EXCESS 9.3 mmol/L (-2-2); ARTERIAL BLOOD GAS PO2 91.4 mmHg (80-100); ARTERIAL BLOOD GAS pH 7.542 (7.350-7.450)
[2022-07-24 09:49] LABS: VENT MODE AC; VENT RATE 14
[2022-07-24] MEDS ORDERED: VANCOMYCIN PREMIX 1.5 GM 1,500 MG/300 ML BAG IVPB SCH ×2 (10:00→11:00)
[2022-07-24] MEDS: MUPIROCIN 2% TOPICAL OINTMENT FOR DECOLONIZATION NS SCH ×2 (10:36→21:36)
[2022-07-24] MEDS ORDERED: MAGNESIUM SULFATE IN WATER 2 GM/50 ML IVPB IVPB ONE (11:30)
[2022-07-24] MEDS ORDERED: INSULIN (NOVOLOG) ASPART 100 UNITS/ML 10ML VIAL ONE ×2 (11:38→12:05)
[2022-07-24] MEDS: NOREPINEPHRINE BITARTRATE/D5W 8 MG/250 ML BAG IVPB SCH (19:00)
[2022-07-24] MEDS: CHLORHEXIDINE GLUCONATE 4% CLEANSER FOR DECOLONIZATION TP SCH (21:37)
[2022-07-24] MEDS: ATORVASTATIN CA 40 MG TABLET (FP) PO SCH (21:37)
[2022-07-25] MEDS: PIPERACILLIN/TAZOB 3.375 GM 3.375 GM in DEXTROSE 5%-WATER - 50 ML IVPB SCH ×3 (01:17→17:20)
[2022-07-25] MEDS: INSULIN SLIDING SCALE (NOVOLOG) 1 VIAL SQ SCH ×3 (06:19→15:59)
[2022-07-25 06:28] LABS: ARTERIAL BLD GAS O2 SATURATION 97.9 % (95-98); ARTERIAL BLOOD GAS BASE EXCESS 9.2 mmol/L (-2-2); ARTERIAL BLOOD GAS PO2 100.8 mmHg (80-100)
[2022-07-25 06:30] LABS: VENT RATE 14
[2022-07-25 07:45] LABS: POTASSIUM 3.3 mmol/L (3.5-5.1)
[2022-07-25 07:50] LABS: CALCIUM 8.3 mg/dL (8.5-10.1)
[2022-07-25 07:51] LABS: BLOOD UREA NITROGEN 21.6 mg/dL (7-18); MAGNESIUM 1.6 mg/dL (1.8-2.4)
[2022-07-25 07:54] LABS: CREATININE 0.8 mg/dL (0.55-1.3); PHOSPHOROUS 2.8 mg/dL (2.5-4.9)
[2022-07-25 07:58] LABS: TOT PROT 6.6 g/dl (6.4-8.2)
[2022-07-25 07:59] LABS: BILIRUBIN,TOTAL 1.2 mg/dL (0.2-1)
[2022-07-25 08:18] LABS: BASO % 0.2 % (0-2.0); EOS % 0.1 % (0-4.5); HEMOGLOBIN 9.7 GM/dL (11.7-16.9); LYMPH % 5.8 % (8-40); MCH 25.9 pg (25.7-33.7); MCHC 33.6 g/dl (32.0-35.9); MEAN PLT VOLUME 9.3 fl (7.5-11.1); MONO % 4.9 % (3.8-10.2); PLATELET COUNT 160 10^3/uL (134-434); RBC 3.77 M/mm3 (4.00-5.60); RDW 16.9 % (11.9-15.9); WHITE BLOOD COUNT 13.4 K/mm3 (4.0-10.0)
[2022-07-25] MEDS ORDERED: MAGNESIUM SULFATE IN WATER 2 GM/50 ML IVPB IVPB ONE (08:30)
[2022-07-25] MEDS: DEXMEDETOMIDINE PREMIX 400 MCG/100 ML BAG IVPB SCH ×2 (09:30→21:50)
[2022-07-25] MEDS: PANTOPRAZOLE SODIUM 40 MG VIAL IVPUSH SCH (09:33)
[2022-07-25] MEDS: KCL 10 MEQ IVPB 10 MEQ/100 ML INFUS.BAG IVPB SCH ×4 (09:34→15:19)
[2022-07-25] MEDS: MUPIROCIN 2% TOPICAL OINTMENT FOR DECOLONIZATION NS SCH ×2 (09:34→21:43)
[2022-07-25] MEDS: ESCITALOPRAM OXALATE 10 MG TABLET PO SCH (09:34)
[2022-07-25] MEDS: APIXABAN 5 MG TABLET PO SCH ×2 (09:35→21:43)
[2022-07-25] MEDS ORDERED: FUROSEMIDE 40 MG/4 ML INJECTABLE VIAL IVPUSH ONE ×2 (09:50→15:12)
[2022-07-25] MEDS ORDERED: POTASSIUM CHLORIDE ORAL LIQUID 20 MEQ/15 ML PO ONE ×2 (09:50→15:12)
[2022-07-25 10:44] LABS: ARTERIAL BLD GAS O2 SATURATION 95.9 % (95-98); ARTERIAL BLOOD GAS BASE EXCESS 5.1 mmol/L (-2-2); ARTERIAL BLOOD GAS PO2 76.6 mmHg (80-100); ARTERIAL BLOOD GAS pH 7.457 (7.350-7.450)
[2022-07-25 10:45] LABS: VENT MODE PSV/PS+7
[2022-07-25] MEDS ORDERED: INSULIN (NOVOLOG) ASPART 100 UNITS/ML 10ML VIAL ONE ×2 (11:16→16:00)
[2022-07-25] MEDS: CHLORHEXIDINE GLUCONATE 4% CLEANSER FOR DECOLONIZATION TP SCH (21:42)
[2022-07-25] MEDS: ATORVASTATIN CA 40 MG TABLET (FP) PO SCH (21:42)
[2022-07-25] MEDS: NOREPINEPHRINE BITARTRATE/D5W 8 MG/250 ML BAG IVPB SCH (22:45)
[2022-07-26] MEDS: PIPERACILLIN/TAZOB 3.375 GM 3.375 GM in DEXTROSE 5%-WATER - 50 ML IVPB SCH ×3 (02:01→17:32)
[2022-07-26] MEDS: DEXMEDETOMIDINE PREMIX 400 MCG/100 ML BAG IVPB SCH ×3 (03:12→20:06)
[2022-07-26] MEDS ORDERED: INSULIN (NOVOLOG) ASPART 100 UNITS/ML 10ML VIAL ONE (06:39)
[2022-07-26] MEDS: INSULIN SLIDING SCALE (NOVOLOG) 1 VIAL SQ SCH ×3 (06:41→17:35)
[2022-07-26 06:45] LABS: ARTERIAL BLD GAS O2 SATURATION 95.4 % (95-98); ARTERIAL BLOOD GAS BASE EXCESS 3.3 mmol/L (-2-2); ARTERIAL BLOOD GAS PO2 71.2 mmHg (80-100); ARTERIAL BLOOD GAS pH 7.481 (7.350-7.450)
[2022-07-26 06:49] LABS: VENT MODE V-A/C; VENT RATE 12
[2022-07-26 07:16] LABS: HEMATOCRIT 31.6 % (35.4-49); HEMOGLOBIN 10.4 GM/dL (11.7-16.9); MCH 25.4 pg (25.7-33.7); MCHC 32.9 g/dl (32.0-35.9); MEAN CELL VOLUME 77.2 fl (80-96); PLATELET COUNT 183 10^3/uL (134-434); RBC 4.09 M/mm3 (4.00-5.60); RDW 16.9 % (11.9-15.9)
[2022-07-26 07:20] LABS: POTASSIUM 3.9 mmol/L (3.5-5.1)
[2022-07-26 07:23] LABS: CALCIUM 8.1 mg/dL (8.5-10.1)
[2022-07-26 07:24] LABS: BLOOD UREA NITROGEN 23.1 mg/dL (7-18); MAGNESIUM 1.6 mg/dL (1.8-2.4)
[2022-07-26 07:27] LABS: CREATININE 0.8 mg/dL (0.55-1.3); PHOSPHOROUS 2.2 mg/dL (2.5-4.9)
[2022-07-26] MEDS ORDERED: MAGNESIUM SULF 50% (8.12 MEQ/2 ML-1 GM VIAL) IVPB ONE (08:18)
[2022-07-26] MEDS ORDERED: POTASSIUM PHOSPHATE 30 MM in SODIUM CHLORIDE 250 ML IVPB ONE (08:38)
[2022-07-26] MEDS ORDERED: NAPH,MB-DB/K PH,MBDB POWDER PACKET PO ONE (08:40)
[2022-07-26] MEDS: APIXABAN 5 MG TABLET PO SCH ×2 (09:06→21:34)
[2022-07-26] MEDS: ESCITALOPRAM OXALATE 10 MG TABLET PO SCH (09:06)
[2022-07-26] MEDS: MUPIROCIN 2% TOPICAL OINTMENT FOR DECOLONIZATION NS SCH ×2 (09:07→22:35)
[2022-07-26] MEDS: PANTOPRAZOLE SODIUM 40 MG VIAL IVPUSH SCH (09:12)
[2022-07-26] MEDS: ALBUTEROL SO4 2.5/IPRATROPIUM 0.5 INH SOL 3 ML VIAL.NEB. NEB SCH ×3 (12:52→20:35)
[2022-07-26] MEDS: CHLORHEXIDINE GLUCONATE 4% CLEANSER FOR DECOLONIZATION TP SCH (21:34)
[2022-07-26] MEDS: ATORVASTATIN CA 40 MG TABLET (FP) PO SCH (21:34)
[2022-07-26] MEDS: NOREPINEPHRINE BITARTRATE/D5W 8 MG/250 ML BAG IVPB SCH (22:55)
[2022-07-27] MEDS: DEXMEDETOMIDINE PREMIX 400 MCG/100 ML BAG IVPB SCH ×4 (00:30→23:51)
[2022-07-27] MEDS: PIPERACILLIN/TAZOB 3.375 GM 3.375 GM in DEXTROSE 5%-WATER - 50 ML IVPB SCH ×3 (01:18→17:32)
[2022-07-27] MEDS ORDERED: INSULIN (NOVOLOG) ASPART 100 UNITS/ML 10ML VIAL ONE ×3 (05:59→21:43)
[2022-07-27] MEDS: INSULIN SLIDING SCALE (NOVOLOG) 1 VIAL SQ SCH ×3 (06:01→17:45)
[2022-07-27 06:53] LABS: BASO % 0.1 % (0-2.0); HEMATOCRIT 29.9 % (35.4-49); HEMOGLOBIN 10.2 GM/dL (11.7-16.9); LYMPH % 6.3 % (8-40); MCH 26.3 pg (25.7-33.7); MCHC 34.2 g/dl (32.0-35.9); MEAN CELL VOLUME 76.8 fl (80-96); MEAN PLT VOLUME 9.3 fl (7.5-11.1); MONO % 7.8 % (3.8-10.2); NEUT % 85.8 % (42.8-82.8); PLATELET COUNT 176 10^3/uL (134-434); RBC 3.89 M/mm3 (4.00-5.60); RDW 16.8 % (11.9-15.9); WHITE BLOOD COUNT 9.3 K/mm3 (4.0-10.0)
[2022-07-27 07:14] LABS: POTASSIUM 4.4 mmol/L (3.5-5.1)
[2022-07-27 07:20] LABS: CALCIUM 7.7 mg/dL (8.5-10.1)
[2022-07-27 07:22] LABS: BLOOD UREA NITROGEN 20.8 mg/dL (7-18); MAGNESIUM 1.9 mg/dL (1.8-2.4)
[2022-07-27 07:24] LABS: CREATININE 0.8 mg/dL (0.55-1.3); PHOSPHOROUS 3.2 mg/dL (2.5-4.9)
[2022-07-27 07:25] LABS: BILIRUBIN,TOTAL 1.1 mg/dL (0.2-1); TOT PROT 6.8 g/dl (6.4-8.2)
[2022-07-27] MEDS: ALBUTEROL SO4 2.5/IPRATROPIUM 0.5 INH SOL 3 ML VIAL.NEB. NEB SCH ×4 (07:45→19:59)
[2022-07-27] MEDS: APIXABAN 5 MG TABLET PO SCH ×2 (09:19→21:54)
[2022-07-27] MEDS: ESCITALOPRAM OXALATE 10 MG TABLET PO SCH (09:19)
[2022-07-27] MEDS: PANTOPRAZOLE SODIUM 40 MG VIAL IVPUSH SCH (09:19)
[2022-07-27] MEDS: MUPIROCIN 2% TOPICAL OINTMENT FOR DECOLONIZATION NS SCH ×2 (09:20→21:54)
[2022-07-27] MEDS: methylPREDNISolone NA SUCC 40 MG/1 ML VIAL IVPUSH SCH ×2 (10:36→17:31)
[2022-07-27] MEDS ORDERED: ALBUTEROL SO4 0.083% IH SOL 2.5 MG/3 ML VIAL.NEB. NEB PRN (10:51)
[2022-07-27] MEDS ORDERED: RAPID SEQUENCE INTUBATION KIT NR ONE (11:01)
[2022-07-27] MEDS ORDERED: MIDAZOLAM HCL 2 MG/2 ML SINGLE DOSE VIAL ONE (11:06)
[2022-07-27] MEDS ORDERED: ETOMIDATE 40 MG/20 ML VIAL IVPUSH ONE (11:29)
[2022-07-27] MEDS ORDERED: MIDAZOLAM HCL 2 MG/2 ML SINGLE DOSE VIAL IVPUSH ONE (11:29)
[2022-07-27] MEDS ORDERED: SUCCINYLCHOLINE CHLORIDE 200 MG/10 ML VIAL IVPUSH ONE (11:30)
[2022-07-27] MEDS ORDERED: ACETAMINOPHEN 1000 MG/100 ML BAG IVPB ONE (11:33)
[2022-07-27] MEDS ORDERED: ACETAMINOPHEN 1000 MG/100 ML BAG IVPB PRN (11:36)
[2022-07-27] MEDS ORDERED: SODIUM CHLORIDE 1,000 ML IV STA (11:36)
[2022-07-27] MEDS: MIDAZOLAM IN 0.9 % SOD.CHLORID 100 MG/100 ML PLAST..BAG IVPB SCH (12:05)
[2022-07-27] MEDS: ACETAMINOPHEN 1000 MG/100 ML BAG IVPB PRN ×2 (12:11→21:56)
[2022-07-27 13:33] LABS: ARTERIAL BLOOD GAS PO2 62.1 mmHg (80-100); ARTERIAL BLOOD GAS pH 7.339 (7.350-7.450)
[2022-07-27 13:35] LABS: ALLENS TEST POSITIVE
[2022-07-27 13:37] LABS: VENT RATE 12
[2022-07-27 13:40] VITALS: BMI 20.7
[2022-07-27] MEDS: ATORVASTATIN CA 40 MG TABLET (FP) PO SCH (21:53)
[2022-07-27] MEDS: CHLORHEXIDINE GLUCONATE 4% CLEANSER FOR DECOLONIZATION TP SCH (21:54)
[2022-07-28] MEDS: PIPERACILLIN/TAZOB 3.375 GM 3.375 GM in DEXTROSE 5%-WATER - 50 ML IVPB SCH ×3 (02:12→17:05)
[2022-07-28] MEDS: methylPREDNISolone NA SUCC 40 MG/1 ML VIAL IVPUSH SCH ×2 (02:12→10:17)
[2022-07-28] MEDS: ACETAMINOPHEN 1000 MG/100 ML BAG IVPB PRN ×2 (04:10→20:19)
[2022-07-28] MEDS: DEXMEDETOMIDINE PREMIX 400 MCG/100 ML BAG IVPB SCH ×4 (05:45→21:14)
[2022-07-28 06:18] LABS: ARTERIAL BLD GAS O2 SATURATION 97.3 % (95-98); ARTERIAL BLOOD GAS BASE EXCESS 4.3 mmol/L (-2-2); ARTERIAL BLOOD GAS PO2 93.8 mmHg (80-100); ARTERIAL BLOOD GAS pH 7.435 (7.350-7.450)
[2022-07-28] MEDS: INSULIN SLIDING SCALE (NOVOLOG) 1 VIAL SQ SCH ×3 (06:24→17:03)
[2022-07-28] MEDS ORDERED: INSULIN (NOVOLOG) ASPART 100 UNITS/ML 10ML VIAL ONE ×3 (06:24→18:06)
[2022-07-28 06:35] LABS: ALLENS TEST POSITIVE; VENT MODE V-A/C; VENT RATE 15
[2022-07-28 07:18] LABS: HEMATOCRIT 28.8 % (35.4-49); HEMOGLOBIN 9.8 GM/dL (11.7-16.9); LYMPH % 5.4 % (8-40); MCH 26.1 pg (25.7-33.7); MCHC 33.9 g/dl (32.0-35.9); MEAN PLT VOLUME 9.4 fl (7.5-11.1); MONO % 4.9 % (3.8-10.2); NEUT % 89.7 % (42.8-82.8); PLATELET COUNT 161 10^3/uL (134-434); RBC 3.74 M/mm3 (4.00-5.60); WHITE BLOOD COUNT 6.2 K/mm3 (4.0-10.0)
[2022-07-28 07:54] LABS: POTASSIUM 5.1 mmol/L (3.5-5.1)
[2022-07-28 08:04] LABS: BLOOD UREA NITROGEN 26.9 mg/dL (7-18); CALCIUM 7.7 mg/dL (8.5-10.1)
[2022-07-28 08:07] LABS: CREATININE 0.9 mg/dL (0.55-1.3); PHOSPHOROUS 1.7 mg/dL (2.5-4.9)
[2022-07-28 08:08] LABS: BILIRUBIN,TOTAL 0.6 mg/dL (0.2-1)
[2022-07-28] MEDS ORDERED: POTASSIUM PHOSPHATE 30 MM in DEXTROSE 5%-WATER - 250 ML IVPB ONE (08:08)
[2022-07-28] MEDS: ALBUTEROL SO4 2.5/IPRATROPIUM 0.5 INH SOL 3 ML VIAL.NEB. NEB SCH ×4 (08:30→20:17)
[2022-07-28] MEDS ORDERED: SODIUM PHOSPHATE - 30 MM in SODIUM CHLORIDE 250 ML IVPB ONE (10:00)
[2022-07-28] MEDS: APIXABAN 5 MG TABLET PO SCH ×2 (10:17→21:07)
[2022-07-28] MEDS: ESCITALOPRAM OXALATE 10 MG TABLET PO SCH (10:17)
[2022-07-28] MEDS: PANTOPRAZOLE SODIUM 40 MG VIAL IVPUSH SCH (10:17)
[2022-07-28 12:44] LABS: EPI CELLS 8 /uL (0-25.1); HYALINE CASTS 0 /uL (0-3.1); PH,URINE 6.5 (5.0-8.0); URINE APPEARANCE CLEAR; URINE BACTERIA 24 /uL (0-1359); URINE BILIRUBIN NEGATIVE (NEGATIVE); URINE COLOR YELLOW; URINE GLUCOSE (UA) 3+ (NEGATIVE); URINE KETONE NEGATIVE (NEGATIVE); URINE LEUK ESTERASE NEGATIVE (NEGATIVE); URINE NITRITE NEGATIVE (NEGATIVE); URINE PROTEIN 1+ (NEGATIVE); URINE RBC 59 /uL (0-23.9); URINE UROBILINOGEN 4.0 E.U/dl mg/dL (0.2-1.0); URINE WBC 20 /uL (0-25.8)
[2022-07-28] MEDS: MUPIROCIN 2% TOPICAL OINTMENT FOR DECOLONIZATION NS SCH (13:05)
[2022-07-28] MEDS ORDERED: INSULIN (LEVEMIR) 100 UNITS/ML UNITS SQ ONE ×2 (16:47→17:00)
[2022-07-28] MEDS: CHLORHEXIDINE GLUCONATE 4% CLEANSER FOR DECOLONIZATION TP SCH (21:07)
[2022-07-28] MEDS: ATORVASTATIN CA 40 MG TABLET (FP) PO SCH (21:07)
[2022-07-28] MEDS: MIDAZOLAM IN 0.9 % SOD.CHLORID 100 MG/100 ML PLAST..BAG IVPB SCH (21:14)
[2022-07-28] MEDS ORDERED: INSULIN (LEVEMIR) 100 UNITS/ML UNITS SQ SCH (22:00)
[2022-07-29] MEDS: PIPERACILLIN/TAZOB 3.375 GM 3.375 GM in DEXTROSE 5%-WATER - 50 ML IVPB SCH ×2 (02:12→09:05)
[2022-07-29] MEDS: DEXMEDETOMIDINE PREMIX 400 MCG/100 ML BAG IVPB SCH ×3 (02:12→15:46)
[2022-07-29] MEDS ORDERED: PHENYLEPHRINE HCL 10 MG/1 ML SINGLE DOSE VIAL ONE (05:09)
[2022-07-29] MEDS ORDERED: INSULIN (NOVOLOG) ASPART 100 UNITS/ML 10ML VIAL ONE (05:54)
[2022-07-29] MEDS: INSULIN SLIDING SCALE (NOVOLOG) 1 VIAL SQ SCH ×3 (06:09→17:07)
[2022-07-29 06:30] LABS: HEMATOCRIT 29.1 % (35.4-49); HEMOGLOBIN 9.8 GM/dL (11.7-16.9); MCH 25.9 pg (25.7-33.7); MCHC 33.5 g/dl (32.0-35.9); MEAN CELL VOLUME 77.3 fl (80-96); MEAN PLT VOLUME 9.4 fl (7.5-11.1); PLATELET COUNT 186 10^3/uL (134-434); RBC 3.77 M/mm3 (4.00-5.60); RDW 17.1 % (11.9-15.9); WHITE BLOOD COUNT 8.4 K/mm3 (4.0-10.0)
[2022-07-29 06:50] LABS: POTASSIUM 4.8 mmol/L (3.5-5.1)
[2022-07-29 06:53] LABS: CALCIUM 7.9 mg/dL (8.5-10.1)
[2022-07-29 06:54] LABS: ALBUMIN 1.9 g/dl (3.4-5.0); BLOOD UREA NITROGEN 33.9 mg/dL (7-18); MAGNESIUM 1.9 mg/dL (1.8-2.4)
[2022-07-29 06:56] LABS: PHOSPHOROUS 1.4 mg/dL (2.5-4.9)
[2022-07-29 06:57] LABS: CREATININE 0.9 mg/dL (0.55-1.3)
[2022-07-29 06:58] LABS: BILIRUBIN,TOTAL 0.4 mg/dL (0.2-1); TOT PROT 6.8 g/dl (6.4-8.2)
[2022-07-29] MEDS ORDERED: NAPH,MB-DB/K PH,MBDB POWDER PACKET PO ONE ×2 (08:12→08:16)
[2022-07-29] MEDS: APIXABAN 5 MG TABLET PO SCH ×2 (09:05→21:19)
[2022-07-29] MEDS: PANTOPRAZOLE SODIUM 40 MG VIAL IVPUSH SCH (09:05)
[2022-07-29] MEDS: ESCITALOPRAM OXALATE 10 MG TABLET PO SCH (09:05)
[2022-07-29] MEDS: methylPREDNISolone NA SUCC 40 MG/1 ML VIAL IVPUSH SCH (09:05)
[2022-07-29] MEDS: ALBUTEROL SO4 2.5/IPRATROPIUM 0.5 INH SOL 3 ML VIAL.NEB. NEB SCH ×4 (09:45→20:04)
[2022-07-29] MEDS: ACETAMINOPHEN 1000 MG/100 ML BAG IVPB PRN ×2 (11:07→20:24)
[2022-07-29] MEDS ORDERED: ACETAMINOPHEN 1000 MG/100 ML BAG IVPB ONE (15:55)
[2022-07-29] MEDS ORDERED: VANCOMYCIN/WATER FOR INJ (PEG) 1,000 MG/200 ML BAG IVPB ONE (16:19)
[2022-07-29] MEDS: MEROPENEM 1 GM in DEXTROSE 5%-WATER 100 ML IVPB SCH (17:04)
[2022-07-29] MEDS: ATORVASTATIN CA 40 MG TABLET (FP) PO SCH (21:19)
[2022-07-29] MEDS: INSULIN (LEVEMIR) 100 UNITS/ML UNITS SQ SCH (21:20)
[2022-07-29] MEDS: CHLORHEXIDINE GLUCONATE 4% CLEANSER FOR DECOLONIZATION TP SCH (21:20)
[2022-07-29] MEDS ORDERED: INSULIN (LEVEMIR) 100 UNITS/ML UNITS SQ SCH (22:00)
[2022-07-30] MEDS: MEROPENEM 1 GM in DEXTROSE 5%-WATER 100 ML IVPB SCH ×3 (01:26→17:07)
[2022-07-30] MEDS: DEXMEDETOMIDINE PREMIX 400 MCG/100 ML BAG IVPB SCH ×5 (01:31→21:45)
[2022-07-30] MEDS: ACETAMINOPHEN 1000 MG/100 ML BAG IVPB PRN ×3 (02:35→21:01)
[2022-07-30] MEDS ORDERED: INSULIN (NOVOLOG) ASPART 100 UNITS/ML 10ML VIAL ONE ×3 (06:29→15:34)
[2022-07-30] MEDS: INSULIN SLIDING SCALE (NOVOLOG) 1 VIAL SQ SCH ×3 (06:32→15:31)
[2022-07-30 07:22] LABS: BASO % 0.2 % (0-2.0); EOS % 0.1 % (0-4.5); HEMATOCRIT 29.4 % (35.4-49); LYMPH % 9.8 % (8-40); MCH 26.5 pg (25.7-33.7); MCHC 34.2 g/dl (32.0-35.9); MEAN CELL VOLUME 77.6 fl (80-96); MEAN PLT VOLUME 9.5 fl (7.5-11.1); NEUT % 81.9 % (42.8-82.8); PLATELET COUNT 192 10^3/uL (134-434); RBC 3.78 M/mm3 (4.00-5.60); RDW 17.4 % (11.9-15.9); WHITE BLOOD COUNT 7.3 K/mm3 (4.0-10.0)
[2022-07-30 07:53] LABS: BLOOD UREA NITROGEN 30.8 mg/dL (7-18); CALCIUM 7.9 mg/dL (8.5-10.1)
[2022-07-30 07:54] LABS: ALBUMIN 1.9 g/dl (3.4-5.0)
[2022-07-30 07:57] LABS: CREATININE 0.8 mg/dL (0.55-1.3)
[2022-07-30 07:58] LABS: BILIRUBIN,TOTAL 0.6 mg/dL (0.2-1)
[2022-07-30 07:59] LABS: TOT PROT 6.6 g/dl (6.4-8.2)
[2022-07-30] MEDS: ALBUTEROL SO4 2.5/IPRATROPIUM 0.5 INH SOL 3 ML VIAL.NEB. NEB SCH ×4 (08:00→20:05)
[2022-07-30] MEDS: ESCITALOPRAM OXALATE 10 MG TABLET PO SCH (10:06)
[2022-07-30] MEDS: methylPREDNISolone NA SUCC 40 MG/1 ML VIAL IVPUSH SCH (10:06)
[2022-07-30] MEDS: APIXABAN 5 MG TABLET PO SCH ×2 (10:06→21:45)
[2022-07-30] MEDS: PANTOPRAZOLE SODIUM 40 MG VIAL IVPUSH SCH (10:06)
[2022-07-30] MEDS: IBUPROFEN 800 MG/8 ML IJ IVPB PRN (15:22)
[2022-07-30] MEDS: ATORVASTATIN CA 40 MG TABLET (FP) PO SCH (21:45)
[2022-07-30] MEDS: CHLORHEXIDINE GLUCONATE 4% CLEANSER FOR DECOLONIZATION TP SCH (21:45)
[2022-07-30] MEDS: INSULIN (LEVEMIR) 100 UNITS/ML UNITS SQ SCH (22:06)
[2022-07-30] MEDS: MIDAZOLAM IN 0.9 % SOD.CHLORID 100 MG/100 ML PLAST..BAG IVPB SCH (22:06)
[2022-07-31] MEDS: MEROPENEM 1 GM in DEXTROSE 5%-WATER 100 ML IVPB SCH ×3 (01:31→17:08)
[2022-07-31] MEDS ORDERED: INSULIN (NOVOLOG) ASPART 100 UNITS/ML 10ML VIAL ONE ×3 (06:16→16:29)
[2022-07-31] MEDS: INSULIN SLIDING SCALE (NOVOLOG) 1 VIAL SQ SCH ×3 (06:18→16:29)
[2022-07-31 07:54] LABS: BASO % 0.1 % (0-2.0); HEMATOCRIT 33.2 % (35.4-49); MCH 25.9 pg (25.7-33.7); MCHC 33.2 g/dl (32.0-35.9); MEAN CELL VOLUME 78.1 fl (80-96); MEAN PLT VOLUME 9.2 fl (7.5-11.1); MONO % 6.5 % (3.8-10.2); NEUT % 84.4 % (42.8-82.8); PLATELET COUNT 194 10^3/uL (134-434); RBC 4.25 M/mm3 (4.00-5.60); RDW 17.5 % (11.9-15.9); WHITE BLOOD COUNT 9.1 K/mm3 (4.0-10.0)
[2022-07-31] MEDS: DEXMEDETOMIDINE PREMIX 400 MCG/100 ML BAG IVPB SCH ×2 (08:01→19:28)
[2022-07-31] MEDS: ALBUTEROL SO4 2.5/IPRATROPIUM 0.5 INH SOL 3 ML VIAL.NEB. NEB SCH ×4 (08:09→20:34)
[2022-07-31 08:12] LABS: CALCIUM 8.1 mg/dL (8.5-10.1)
[2022-07-31 08:15] LABS: CREATININE 0.9 mg/dL (0.55-1.3)
[2022-07-31 08:17] LABS: BILIRUBIN,TOTAL 0.5 mg/dL (0.2-1)
[2022-07-31] MEDS: PANTOPRAZOLE SODIUM 40 MG VIAL IVPUSH SCH (09:24)
[2022-07-31] MEDS: APIXABAN 5 MG TABLET PO SCH ×2 (09:28→23:02)
[2022-07-31] MEDS: ESCITALOPRAM OXALATE 10 MG TABLET PO SCH (09:28)
[2022-07-31] MEDS: methylPREDNISolone NA SUCC 40 MG/1 ML VIAL IVPUSH SCH (09:29)
[2022-07-31] MEDS ORDERED: FUROSEMIDE 40 MG/4 ML INJECTABLE VIAL IVPUSH ONE (09:30)
[2022-07-31] MEDS: POLYETHYLENE GLYCOL (HEALTHYLAX) 3350 17 GM PACKET PO SCH ×2 (09:36→23:03)
[2022-07-31] MEDS: ACETAMINOPHEN 500 MG TABLET (FP) PO PRN ×3 (12:07→23:14)
[2022-07-31] MEDS: IBUPROFEN 800 MG/8 ML IJ IVPB PRN (15:07)
[2022-07-31] MEDS: MIDAZOLAM IN 0.9 % SOD.CHLORID 100 MG/100 ML PLAST..BAG IVPB SCH ×2 (15:16→19:28)
[2022-07-31] MEDS ORDERED: MAGNESIUM CITRATE 300 ML BOTTLE PO ONE (19:12)
[2022-07-31] MEDS: ATORVASTATIN CA 40 MG TABLET (FP) PO SCH (23:02)
[2022-07-31] MEDS: CHLORHEXIDINE GLUCONATE 4% CLEANSER FOR DECOLONIZATION TP SCH (23:03)
[2022-07-31] MEDS: INSULIN (LEVEMIR) 100 UNITS/ML UNITS SQ SCH (23:03)
[2022-07-31] MEDS: SENNOSIDES 8.8 MG/5 ML SYRUP PO SCH (23:10)
[2022-08-01] MEDS: DEXMEDETOMIDINE PREMIX 400 MCG/100 ML BAG IVPB SCH ×6 (01:19→22:47)
[2022-08-01] MEDS: MEROPENEM 1 GM in DEXTROSE 5%-WATER 100 ML IVPB SCH ×3 (01:19→18:27)
[2022-08-01] MEDS ORDERED: INSULIN (NOVOLOG) ASPART 100 UNITS/ML 10ML VIAL ONE ×6 (05:44→20:03)
[2022-08-01] MEDS: INSULIN SLIDING SCALE (NOVOLOG) 1 VIAL SQ SCH ×3 (06:06→16:25)
[2022-08-01] MEDS: ALBUTEROL SO4 2.5/IPRATROPIUM 0.5 INH SOL 3 ML VIAL.NEB. NEB SCH ×4 (07:15→20:30)
[2022-08-01 07:55] LABS: HEMATOCRIT 34.3 % (35.4-49); HEMOGLOBIN 11.3 GM/dL (11.7-16.9); MCH 25.9 pg (25.7-33.7); MEAN CELL VOLUME 78.4 fl (80-96); MEAN PLT VOLUME 9.5 fl (7.5-11.1); PLATELET COUNT 234 10^3/uL (134-434); RBC 4.37 M/mm3 (4.00-5.60); WHITE BLOOD COUNT 11.5 K/mm3 (4.0-10.0)
[2022-08-01] MEDS: ACETAMINOPHEN 500 MG TABLET (FP) PO PRN (08:20)
[2022-08-01 08:21] LABS: POTASSIUM 5.3 mmol/L (3.5-5.1)
[2022-08-01 08:25] LABS: BLOOD UREA NITROGEN 39.7 mg/dL (7-18)
[2022-08-01 08:27] LABS: CALCIUM 8.6 mg/dL (8.5-10.1)
[2022-08-01 08:28] LABS: CREATININE 0.9 mg/dL (0.55-1.3); MAGNESIUM 2.1 mg/dL (1.8-2.4); PHOSPHOROUS 2.3 mg/dL (2.5-4.9)
[2022-08-01] MEDS ORDERED: SODIUM ZIRCONIUM CYCLOSILICATE (LOKELMA) 5 GM PACKET PO ONE (09:10)
[2022-08-01] MEDS ORDERED: SODIUM PHOSPHATE - 15 MM in SODIUM CHLORIDE 250 ML IVPB ONE (09:11)
[2022-08-01] MEDS ORDERED: FUROSEMIDE 40 MG/4 ML INJECTABLE VIAL IVPUSH ONE ×2 (09:22→19:43)
[2022-08-01] MEDS: IBUPROFEN 800 MG/8 ML IJ IVPB PRN (10:18)
[2022-08-01] MEDS: APIXABAN 5 MG TABLET PO SCH ×2 (10:20→21:45)
[2022-08-01] MEDS: methylPREDNISolone NA SUCC 40 MG/1 ML VIAL IVPUSH SCH (10:20)
[2022-08-01] MEDS: ESCITALOPRAM OXALATE 10 MG TABLET PO SCH (10:20)
[2022-08-01] MEDS: PANTOPRAZOLE SODIUM 40 MG VIAL IVPUSH SCH (10:23)
[2022-08-01] MEDS: POLYETHYLENE GLYCOL (HEALTHYLAX) 3350 17 GM PACKET PO SCH ×2 (10:26→21:45)
[2022-08-01] MEDS: BISACODYL 10 MG SUPP.RECT PR PRN (10:46)
[2022-08-01 16:25] LABS: POTASSIUM 5.5 mmol/L (3.5-5.1)
[2022-08-01 16:26] LABS: CALCIUM 8.3 mg/dL (8.5-10.1)
[2022-08-01 16:30] LABS: CREATININE 0.9 mg/dL (0.55-1.3)
[2022-08-01] MEDS ORDERED: INSULIN REGULAR HUMAN 100 UNITS/ML *VIAL IVPUSH ONE (19:44)
[2022-08-01] MEDS ORDERED: DEXTROSE 50%-WATER - 25 GM/50 ML VIAL IVPUSH ONE (19:44)
[2022-08-01] MEDS: MIDAZOLAM IN 0.9 % SOD.CHLORID 100 MG/100 ML PLAST..BAG IVPB SCH (19:57)
[2022-08-01] MEDS ORDERED: INSULIN (LEVEMIR) 100 UNITS/ML UNITS SQ ONE (20:02)
[2022-08-01] MEDS ORDERED: DEXTROSE 50%-WATER 25 GM/50 ML DISP.SYRIN ONE (20:04)
[2022-08-01] MEDS ORDERED: MAGNESIUM CITRATE 300 ML BOTTLE PO ONE (20:36)
[2022-08-01] MEDS: DOCUSATE NA 100 MG/10 ML UNIT-DOSE CUPS PO PRN (21:44)
[2022-08-01] MEDS: CHLORHEXIDINE GLUCONATE 4% CLEANSER FOR DECOLONIZATION TP SCH (21:45)
[2022-08-01] MEDS: SENNOSIDES 8.8 MG/5 ML SYRUP PO SCH (21:45)
[2022-08-01] MEDS: INSULIN (LEVEMIR) 100 UNITS/ML UNITS SQ SCH (21:45)
[2022-08-01] MEDS: ATORVASTATIN CA 40 MG TABLET (FP) PO SCH (21:45)
[2022-08-02] MEDS: MEROPENEM 1 GM in DEXTROSE 5%-WATER 100 ML IVPB SCH ×3 (01:25→18:40)
[2022-08-02] MEDS ORDERED: SODIUM PHOSPHATE/NA BIPHOS 133 ML ENEMA RC ONE (06:02)
[2022-08-02] MEDS: DEXMEDETOMIDINE PREMIX 400 MCG/100 ML BAG IVPB SCH ×3 (06:11→21:19)
[2022-08-02] MEDS: INSULIN SLIDING SCALE (NOVOLOG) 1 VIAL SQ SCH ×3 (06:12→16:22)
[2022-08-02] MEDS: ALBUTEROL SO4 2.5/IPRATROPIUM 0.5 INH SOL 3 ML VIAL.NEB. NEB SCH ×4 (07:15→20:30)
[2022-08-02 07:19] LABS: HEMATOCRIT 32.9 % (35.4-49); HEMOGLOBIN 10.9 GM/dL (11.7-16.9); MCH 25.9 pg (25.7-33.7); MCHC 33.3 g/dl (32.0-35.9); PLATELET COUNT 214 10^3/uL (134-434); RBC 4.21 M/mm3 (4.00-5.60); WHITE BLOOD COUNT 9.6 K/mm3 (4.0-10.0)
[2022-08-02 07:25] LABS: POTASSIUM 5.2 mmol/L (3.5-5.1)
[2022-08-02 07:27] LABS: MAGNESIUM 2.1 mg/dL (1.8-2.4)
[2022-08-02 07:28] LABS: CALCIUM 8.4 mg/dL (8.5-10.1)
[2022-08-02 07:29] LABS: BLOOD UREA NITROGEN 38.5 mg/dL (7-18)
[2022-08-02 07:31] LABS: CREATININE 0.8 mg/dL (0.55-1.3); PHOSPHOROUS 2.8 mg/dL (2.5-4.9)
[2022-08-02] MEDS ORDERED: SODIUM ZIRCONIUM CYCLOSILICATE (LOKELMA) 5 GM PACKET PO ONE (08:43)
[2022-08-02] MEDS ORDERED: FUROSEMIDE 40 MG/4 ML INJECTABLE VIAL IVPUSH ONE (08:43)
[2022-08-02] MEDS: PANTOPRAZOLE SODIUM 40 MG VIAL IVPUSH SCH (10:06)
[2022-08-02] MEDS: ESCITALOPRAM OXALATE 10 MG TABLET PO SCH (10:06)
[2022-08-02] MEDS: methylPREDNISolone NA SUCC 40 MG/1 ML VIAL IVPUSH SCH (10:06)
[2022-08-02] MEDS: APIXABAN 5 MG TABLET PO SCH (10:07)
[2022-08-02] MEDS: DOCUSATE NA 100 MG/10 ML UNIT-DOSE CUPS PO PRN ×2 (10:07→21:21)
[2022-08-02] MEDS: POLYETHYLENE GLYCOL (HEALTHYLAX) 3350 17 GM PACKET PO SCH ×2 (10:07→21:20)
[2022-08-02] MEDS: ENOXAPARIN NA (PORCINE) 80 MG/0.8 ML DISP.SYRIN SQ SCH ×2 (14:12→21:19)
[2022-08-02] MEDS: MIDAZOLAM IN 0.9 % SOD.CHLORID 100 MG/100 ML PLAST..BAG IVPB SCH (16:23)
[2022-08-02] MEDS: SENNOSIDES 8.8 MG/5 ML SYRUP PO SCH (21:19)
[2022-08-02] MEDS: ATORVASTATIN CA 40 MG TABLET (FP) PO SCH (21:20)
[2022-08-02] MEDS: CHLORHEXIDINE GLUCONATE 4% CLEANSER FOR DECOLONIZATION TP SCH (21:21)
[2022-08-02] MEDS: BISACODYL 10 MG SUPP.RECT PR PRN (21:21)
[2022-08-02] MEDS: INSULIN (LEVEMIR) 100 UNITS/ML UNITS SQ SCH (21:22)
[2022-08-03] MEDS: MEROPENEM 1 GM in DEXTROSE 5%-WATER 100 ML IVPB SCH ×3 (01:05→18:26)
[2022-08-03] MEDS: DEXMEDETOMIDINE PREMIX 400 MCG/100 ML BAG IVPB SCH ×3 (01:05→15:38)
[2022-08-03] MEDS: INSULIN SLIDING SCALE (NOVOLOG) 1 VIAL SQ SCH ×3 (06:02→18:26)
[2022-08-03 06:50] LABS: BASO % 0.2 % (0-2.0); EOS % 0.2 % (0-4.5); HEMATOCRIT 31.9 % (35.4-49); HEMOGLOBIN 10.9 GM/dL (11.7-16.9); LYMPH % 12.9 % (8-40); MCH 26.2 pg (25.7-33.7); MCHC 34.2 g/dl (32.0-35.9); MEAN CELL VOLUME 76.7 fl (80-96); MEAN PLT VOLUME 9.6 fl (7.5-11.1); MONO % 6.8 % (3.8-10.2); NEUT % 79.9 % (42.8-82.8); PLATELET COUNT 238 10^3/uL (134-434); RBC 4.16 M/mm3 (4.00-5.60)
[2022-08-03 07:14] LABS: POTASSIUM 4.7 mmol/L (3.5-5.1)
[2022-08-03 07:20] LABS: CALCIUM 8.4 mg/dL (8.5-10.1)
[2022-08-03 07:21] LABS: ALBUMIN 2.1 g/dl (3.4-5.0); BLOOD UREA NITROGEN 31.9 mg/dL (7-18); MAGNESIUM 1.9 mg/dL (1.8-2.4)
[2022-08-03 07:24] LABS: CREATININE 0.7 mg/dL (0.55-1.3); PHOSPHOROUS 2.4 mg/dL (2.5-4.9)
[2022-08-03 07:25] LABS: TOT PROT 6.5 g/dl (6.4-8.2)
[2022-08-03 07:26] LABS: BILIRUBIN,TOTAL 1.2 mg/dL (0.2-1)
[2022-08-03] MEDS ORDERED: NAPH,MB-DB/K PH,MBDB POWDER PACKET PO ONE (07:36)
[2022-08-03] MEDS: ALBUTEROL SO4 2.5/IPRATROPIUM 0.5 INH SOL 3 ML VIAL.NEB. NEB SCH ×4 (08:48→20:20)
[2022-08-03] MEDS: POLYETHYLENE GLYCOL (HEALTHYLAX) 3350 17 GM PACKET PO SCH ×2 (09:35→22:17)
[2022-08-03] MEDS: ESCITALOPRAM OXALATE 10 MG TABLET PO SCH (09:35)
[2022-08-03] MEDS: PANTOPRAZOLE SODIUM 40 MG VIAL IVPUSH SCH (09:40)
[2022-08-03] MEDS: methylPREDNISolone NA SUCC 40 MG/1 ML VIAL IVPUSH SCH (09:42)
[2022-08-03] MEDS: ENOXAPARIN NA (PORCINE) 80 MG/0.8 ML DISP.SYRIN SQ SCH ×2 (09:42→22:22)
[2022-08-03] MEDS: INSULIN (LEVEMIR) 100 UNITS/ML UNITS SQ SCH ×2 (09:43→22:22)
[2022-08-03] MEDS: MIDAZOLAM IN 0.9 % SOD.CHLORID 100 MG/100 ML PLAST..BAG IVPB SCH (15:39)
[2022-08-03] MEDS ORDERED: INSULIN (NOVOLOG) ASPART 100 UNITS/ML 10ML VIAL ONE (18:24)
[2022-08-03] MEDS: ATORVASTATIN CA 40 MG TABLET (FP) PO SCH (22:17)
[2022-08-03] MEDS: SENNOSIDES 8.8 MG/5 ML SYRUP PO SCH (22:17)
[2022-08-03] MEDS: CHLORHEXIDINE GLUCONATE 4% CLEANSER FOR DECOLONIZATION TP SCH (22:22)
[2022-08-04] MEDS: MEROPENEM 1 GM in DEXTROSE 5%-WATER 100 ML IVPB SCH ×3 (01:35→18:17)
[2022-08-04 06:46] LABS: HEMATOCRIT 30.7 % (35.4-49); HEMOGLOBIN 10.3 GM/dL (11.7-16.9); MCH 26.1 pg (25.7-33.7); MCHC 33.7 g/dl (32.0-35.9); MEAN CELL VOLUME 77.3 fl (80-96); MEAN PLT VOLUME 9.9 fl (7.5-11.1); PLATELET COUNT 262 10^3/uL (134-434); RBC 3.97 M/mm3 (4.00-5.60); RDW 16.8 % (11.9-15.9); WHITE BLOOD COUNT 6.3 K/mm3 (4.0-10.0)
[2022-08-04] MEDS: INSULIN (LEVEMIR) 100 UNITS/ML UNITS SQ SCH ×2 (06:57→22:00)
[2022-08-04] MEDS: INSULIN SLIDING SCALE (NOVOLOG) 1 VIAL SQ SCH ×3 (06:57→18:18)
[2022-08-04 07:05] LABS: POTASSIUM 4.2 mmol/L (3.5-5.1)
[2022-08-04 07:15] LABS: BLOOD UREA NITROGEN 31.8 mg/dL (7-18); CALCIUM 8.4 mg/dL (8.5-10.1); MAGNESIUM 1.8 mg/dL (1.8-2.4)
[2022-08-04 07:18] LABS: CREATININE 0.7 mg/dL (0.55-1.3); PHOSPHOROUS 2.4 mg/dL (2.5-4.9)
[2022-08-04 07:20] LABS: BILIRUBIN,TOTAL 1.2 mg/dL (0.2-1); TOT PROT 6.2 g/dl (6.4-8.2)
[2022-08-04] MEDS: ALBUTEROL SO4 2.5/IPRATROPIUM 0.5 INH SOL 3 ML VIAL.NEB. NEB SCH ×4 (08:00→20:41)
[2022-08-04] MEDS ORDERED: SODIUM PHOSPHATE - 30 MM in SODIUM CHLORIDE 250 ML IVPB ONE (08:21)
[2022-08-04] MEDS ORDERED: INSULIN (LEVEMIR) 100 UNITS/ML UNITS SQ SCH (08:25)
[2022-08-04] MEDS: ENOXAPARIN NA (PORCINE) 80 MG/0.8 ML DISP.SYRIN SQ SCH ×2 (09:48→22:00)
[2022-08-04] MEDS: POLYETHYLENE GLYCOL (HEALTHYLAX) 3350 17 GM PACKET PO SCH ×2 (09:48→22:01)
[2022-08-04] MEDS: PANTOPRAZOLE SODIUM 40 MG VIAL IVPUSH SCH (09:48)
[2022-08-04] MEDS: ESCITALOPRAM OXALATE 10 MG TABLET PO SCH (10:57)
[2022-08-04] MEDS ORDERED: INSULIN (NOVOLOG) ASPART 100 UNITS/ML 10ML VIAL ONE ×2 (11:49→18:09)
[2022-08-04] MEDS ORDERED: DOCUSATE NA 100 MG/10 ML UNIT-DOSE CUPS PO PRN (21:13)
[2022-08-04] MEDS ORDERED: BISACODYL 10 MG SUPP.RECT PR PRN (21:13)
[2022-08-04] MEDS ORDERED: IBUPROFEN 800 MG/8 ML IJ IVPB PRN (21:13)
[2022-08-04] MEDS ORDERED: ALBUTEROL SO4 0.083% IH SOL 2.5 MG/3 ML VIAL.NEB. NEB PRN (21:13)
[2022-08-04] MEDS ORDERED: CHLORHEXIDINE GLUCONATE 4% CLEANSER FOR DECOLONIZATION TP SCH (22:00)
[2022-08-04] MEDS: ATORVASTATIN CA 40 MG TABLET (FP) PO SCH (22:01)
[2022-08-04] MEDS: SENNOSIDES 8.8 MG/5 ML SYRUP PO SCH (22:02)
[2022-08-05] MEDS: MEROPENEM 1 GM in DEXTROSE 5%-WATER 100 ML IVPB SCH ×3 (01:10→17:41)
[2022-08-05] MEDS: INSULIN SLIDING SCALE (NOVOLOG) 1 VIAL SQ SCH ×3 (06:22→17:25)
[2022-08-05] MEDS: INSULIN (LEVEMIR) 100 UNITS/ML UNITS SQ SCH ×2 (06:23→23:10)
[2022-08-05 06:35] LABS: BASO % 0.3 % (0-2.0); EOS % 0.6 % (0-4.5); HEMATOCRIT 32.6 % (35.4-49); HEMOGLOBIN 10.5 GM/dL (11.7-16.9); LYMPH % 17.3 % (8-40); MCH 25.8 pg (25.7-33.7); MCHC 32.2 g/dl (32.0-35.9); MEAN CELL VOLUME 79.9 fl (80-96); MONO % 12.6 % (3.8-10.2); NEUT % 69.2 % (42.8-82.8); PLATELET COUNT 268 10^3/uL (134-434); RBC 4.08 M/mm3 (4.00-5.60); RDW 17.7 % (11.9-15.9); WHITE BLOOD COUNT 6.9 K/mm3 (4.0-10.0)
[2022-08-05 06:56] LABS: POTASSIUM 4.3 mmol/L (3.5-5.1)
[2022-08-05 06:58] LABS: CALCIUM 8.4 mg/dL (8.5-10.1)
[2022-08-05 06:59] LABS: ALBUMIN 2.3 g/dl (3.4-5.0); BLOOD UREA NITROGEN 34.1 mg/dL (7-18)
[2022-08-05 07:02] LABS: CREATININE 0.7 mg/dL (0.55-1.3); PHOSPHOROUS 3.4 mg/dL (2.5-4.9)
[2022-08-05 07:04] LABS: TOT PROT 6.5 g/dl (6.4-8.2)
[2022-08-05] MEDS: ALBUTEROL SO4 2.5/IPRATROPIUM 0.5 INH SOL 3 ML VIAL.NEB. NEB SCH ×4 (08:00→20:03)
[2022-08-05] MEDS: ENOXAPARIN NA (PORCINE) 80 MG/0.8 ML DISP.SYRIN SQ SCH ×2 (09:30→23:05)
[2022-08-05] MEDS: ESCITALOPRAM OXALATE 10 MG TABLET PO SCH (09:30)
[2022-08-05] MEDS: POLYETHYLENE GLYCOL (HEALTHYLAX) 3350 17 GM PACKET PO SCH ×2 (09:30→23:06)
[2022-08-05] MEDS: PANTOPRAZOLE SODIUM 40 MG VIAL IVPUSH SCH (09:31)
[2022-08-05] MEDS ORDERED: FUROSEMIDE 40 MG/4 ML INJECTABLE VIAL IVPUSH ONE (15:03)
[2022-08-05] MEDS: SENNOSIDES 8.8 MG/5 ML SYRUP PO SCH (23:04)
[2022-08-05] MEDS: ATORVASTATIN CA 40 MG TABLET (FP) PO SCH (23:06)
[2022-08-06] MEDS: MEROPENEM 1 GM in DEXTROSE 5%-WATER 100 ML IVPB SCH ×3 (02:10→17:07)
[2022-08-06] MEDS: INSULIN (LEVEMIR) 100 UNITS/ML UNITS SQ SCH ×2 (06:57→22:32)
[2022-08-06] MEDS: INSULIN SLIDING SCALE (NOVOLOG) 1 VIAL SQ SCH ×3 (06:57→17:09)
[2022-08-06] MEDS: ALBUTEROL SO4 2.5/IPRATROPIUM 0.5 INH SOL 3 ML VIAL.NEB. NEB SCH ×4 (09:01→20:00)
[2022-08-06] MEDS: ENOXAPARIN NA (PORCINE) 80 MG/0.8 ML DISP.SYRIN SQ SCH ×2 (09:57→22:26)
[2022-08-06] MEDS: PANTOPRAZOLE SODIUM 40 MG VIAL IVPUSH SCH (09:57)
[2022-08-06] MEDS: POLYETHYLENE GLYCOL (HEALTHYLAX) 3350 17 GM PACKET PO SCH ×2 (09:57→22:26)
[2022-08-06] MEDS: ESCITALOPRAM OXALATE 10 MG TABLET PO SCH (09:57)
[2022-08-06] MEDS ORDERED: FUROSEMIDE 40 MG/4 ML INJECTABLE VIAL IVPUSH ONE (12:11)
[2022-08-06] MEDS: AMINO ACIDS/PROTEIN HYDROLYS 30 ML LIQUID.PKT PO SCH (17:06)
[2022-08-06] MEDS: ATORVASTATIN CA 40 MG TABLET (FP) PO SCH (22:25)
[2022-08-06] MEDS: SENNOSIDES 8.8 MG/5 ML SYRUP PO SCH (22:26)
[2022-08-07] MEDS: MEROPENEM 1 GM in DEXTROSE 5%-WATER 100 ML IVPB SCH ×3 (01:32→17:27)
[2022-08-07] MEDS: INSULIN SLIDING SCALE (NOVOLOG) 1 VIAL SQ SCH ×3 (06:24→16:28)
[2022-08-07] MEDS: INSULIN (LEVEMIR) 100 UNITS/ML UNITS SQ SCH ×2 (06:25→21:48)
[2022-08-07] MEDS ORDERED: INSULIN SLIDING SCALE (NOVOLOG) 1 VIAL SQ ONE (06:43)
[2022-08-07] MEDS ORDERED: INSULIN (LEVEMIR) 100 UNITS/ML UNITS SQ ONE (06:43)
[2022-08-07 08:23] LABS: CALCIUM 8.6 mg/dL (8.5-10.1)
[2022-08-07 08:24] LABS: ALBUMIN 2.1 g/dl (3.4-5.0); BLOOD UREA NITROGEN 31.4 mg/dL (7-18)
[2022-08-07 08:27] LABS: CREATININE 0.6 mg/dL (0.55-1.3)
[2022-08-07 08:28] LABS: BILIRUBIN,TOTAL 0.6 mg/dL (0.2-1); TOT PROT 6.4 g/dl (6.4-8.2)
[2022-08-07] MEDS: ALBUTEROL SO4 2.5/IPRATROPIUM 0.5 INH SOL 3 ML VIAL.NEB. NEB SCH ×4 (08:48→20:17)
[2022-08-07] MEDS: AMINO ACIDS/PROTEIN HYDROLYS 30 ML LIQUID.PKT PO SCH ×2 (09:33→17:27)
[2022-08-07] MEDS: ENOXAPARIN NA (PORCINE) 80 MG/0.8 ML DISP.SYRIN SQ SCH ×2 (09:33→21:54)
[2022-08-07] MEDS: POLYETHYLENE GLYCOL (HEALTHYLAX) 3350 17 GM PACKET PO SCH ×2 (09:33→21:44)
[2022-08-07] MEDS: ESCITALOPRAM OXALATE 10 MG TABLET PO SCH (09:33)
[2022-08-07] MEDS: PANTOPRAZOLE SODIUM 40 MG VIAL IVPUSH SCH (09:35)
[2022-08-07] MEDS: ATORVASTATIN CA 40 MG TABLET (FP) PO SCH (21:44)
[2022-08-07] MEDS: SENNOSIDES 8.8 MG/5 ML SYRUP PO SCH (21:44)
[2022-08-08] MEDS: MEROPENEM 1 GM in DEXTROSE 5%-WATER 100 ML IVPB SCH ×3 (02:00→17:36)
[2022-08-08] MEDS: INSULIN (LEVEMIR) 100 UNITS/ML UNITS SQ SCH ×2 (06:26→21:51)
[2022-08-08] MEDS: INSULIN SLIDING SCALE (NOVOLOG) 1 VIAL SQ SCH ×3 (06:26→16:49)
[2022-08-08] MEDS: ALBUTEROL SO4 2.5/IPRATROPIUM 0.5 INH SOL 3 ML VIAL.NEB. NEB SCH ×4 (07:37→19:38)
[2022-08-08] MEDS: AMINO ACIDS/PROTEIN HYDROLYS 30 ML LIQUID.PKT PO SCH ×2 (09:00→17:36)
[2022-08-08] MEDS: ENOXAPARIN NA (PORCINE) 80 MG/0.8 ML DISP.SYRIN SQ SCH (09:01)
[2022-08-08] MEDS: POLYETHYLENE GLYCOL (HEALTHYLAX) 3350 17 GM PACKET PO SCH ×3 (09:01→22:00)
[2022-08-08] MEDS: ESCITALOPRAM OXALATE 10 MG TABLET PO SCH (09:02)
[2022-08-08] MEDS: PANTOPRAZOLE SODIUM 40 MG VIAL IVPUSH SCH (09:03)
[2022-08-08] MEDS ORDERED: FUROSEMIDE 40 MG/4 ML INJECTABLE VIAL IVPUSH ONE (16:29)
[2022-08-08] MEDS: ATORVASTATIN CA 40 MG TABLET (FP) PO SCH (21:51)
[2022-08-08] MEDS: SENNOSIDES 8.8 MG/5 ML SYRUP PO SCH (21:52)
[2022-08-08] MEDS: APIXABAN 5 MG TABLET PO SCH (21:53)
[2022-08-09] MEDS: MEROPENEM 1 GM in DEXTROSE 5%-WATER 100 ML IVPB SCH ×3 (01:29→17:07)
[2022-08-09] MEDS: INSULIN (LEVEMIR) 100 UNITS/ML UNITS SQ SCH ×2 (06:19→21:55)
[2022-08-09] MEDS: INSULIN SLIDING SCALE (NOVOLOG) 1 VIAL SQ SCH ×3 (06:19→17:05)
[2022-08-09] MEDS: ALBUTEROL SO4 2.5/IPRATROPIUM 0.5 INH SOL 3 ML VIAL.NEB. NEB SCH ×4 (07:10→20:05)
[2022-08-09 09:18] LABS: HEMATOCRIT 39.8 % (35.4-49); HEMOGLOBIN 12.7 GM/dL (11.7-16.9); MCH 25.9 pg (25.7-33.7); MCHC 31.8 g/dl (32.0-35.9); MEAN CELL VOLUME 81.3 fl (80-96); MEAN PLT VOLUME 8.5 fl (7.5-11.1); PLATELET COUNT 237 10^3/uL (134-434); RDW 18.7 % (11.9-15.9); WHITE BLOOD COUNT 5.1 K/mm3 (4.0-10.0)
[2022-08-09 09:30] LABS: POTASSIUM 4.2 mmol/L (3.5-5.1)
[2022-08-09 09:35] LABS: ALBUMIN 2.5 g/dl (3.4-5.0); BLOOD UREA NITROGEN 19.8 mg/dL (7-18)
[2022-08-09 09:38] LABS: CREATININE 0.6 mg/dL (0.55-1.3)
[2022-08-09 09:39] LABS: BILIRUBIN,TOTAL 0.7 mg/dL (0.2-1)
[2022-08-09] MEDS: APIXABAN 5 MG TABLET PO SCH ×2 (09:39→21:55)
[2022-08-09] MEDS: AMINO ACIDS/PROTEIN HYDROLYS 30 ML LIQUID.PKT PO SCH ×2 (09:39→17:07)
[2022-08-09] MEDS: ESCITALOPRAM OXALATE 10 MG TABLET PO SCH (09:39)
[2022-08-09] MEDS: PANTOPRAZOLE 40 MG TABLET PO SCH (09:40)
[2022-08-09] MEDS: POLYETHYLENE GLYCOL (HEALTHYLAX) 3350 17 GM PACKET PO SCH ×2 (09:42→21:55)
[2022-08-09] MEDS ORDERED: POVIDONE-IODINE 10% SOLN 118 ML BOTTLE TP ONE (14:29)
[2022-08-09] MEDS: ACETAMINOPHEN 500 MG TABLET (FP) PO PRN (21:54)
[2022-08-09] MEDS: ATORVASTATIN CA 40 MG TABLET (FP) PO SCH (21:55)
[2022-08-09] MEDS: SENNOSIDES 8.8 MG/5 ML SYRUP PO SCH (21:56)
[2022-08-10] MEDS: MEROPENEM 1 GM in DEXTROSE 5%-WATER 100 ML IVPB SCH ×3 (01:10→17:40)
[2022-08-10 03:06] LABS: KAPPA/LAMBDA RATIO, UR 3.32 (1.83-14.26)
[2022-08-10] MEDS: INSULIN SLIDING SCALE (NOVOLOG) 1 VIAL SQ SCH ×3 (06:20→16:25)
[2022-08-10] MEDS: INSULIN (LEVEMIR) 100 UNITS/ML UNITS SQ SCH ×2 (06:20→22:39)
[2022-08-10] MEDS: ALBUTEROL SO4 2.5/IPRATROPIUM 0.5 INH SOL 3 ML VIAL.NEB. NEB SCH ×4 (08:08→19:55)
[2022-08-10] MEDS: FUROSEMIDE 20 MG TABLET (FP) PO SCH (09:48)
[2022-08-10] MEDS: PANTOPRAZOLE 40 MG TABLET PO SCH (09:48)
[2022-08-10] MEDS: APIXABAN 5 MG TABLET PO SCH ×2 (09:48→22:25)
[2022-08-10] MEDS: ESCITALOPRAM OXALATE 10 MG TABLET PO SCH (09:48)
[2022-08-10] MEDS: AMINO ACIDS/PROTEIN HYDROLYS 30 ML LIQUID.PKT PO SCH ×2 (09:48→17:40)
[2022-08-10] MEDS: POLYETHYLENE GLYCOL (HEALTHYLAX) 3350 17 GM PACKET PO SCH ×2 (09:50→22:25)
[2022-08-10] MEDS: ATORVASTATIN CA 40 MG TABLET (FP) PO SCH (22:25)
[2022-08-10] MEDS: SENNOSIDES 8.8 MG/5 ML SYRUP PO SCH (22:26)
[2022-08-10] MEDS: ACETAMINOPHEN 500 MG TABLET (FP) PO PRN (22:28)
[2022-08-11] MEDS: INSULIN SLIDING SCALE (NOVOLOG) 1 VIAL SQ SCH ×3 (06:07→17:28)
[2022-08-11] MEDS: INSULIN (LEVEMIR) 100 UNITS/ML UNITS SQ SCH ×2 (06:08→22:29)
[2022-08-11 07:00] LABS: POTASSIUM 4.6 mmol/L (3.5-5.1)
[2022-08-11 07:05] LABS: CALCIUM 8.5 mg/dL (8.5-10.1)
[2022-08-11 07:06] LABS: ALBUMIN 2.1 g/dl (3.4-5.0); BLOOD UREA NITROGEN 18.3 mg/dL (7-18)
[2022-08-11 07:09] LABS: CREATININE 0.5 mg/dL (0.55-1.3)
[2022-08-11 07:11] LABS: BILIRUBIN,TOTAL 0.6 mg/dL (0.2-1); TOT PROT 6.1 g/dl (6.4-8.2)
[2022-08-11] MEDS: ALBUTEROL SO4 2.5/IPRATROPIUM 0.5 INH SOL 3 ML VIAL.NEB. NEB SCH ×4 (08:35→20:50)
[2022-08-11] MEDS: FUROSEMIDE 20 MG TABLET (FP) PO SCH (09:29)
[2022-08-11] MEDS: ESCITALOPRAM OXALATE 10 MG TABLET PO SCH (09:29)
[2022-08-11] MEDS: PANTOPRAZOLE 40 MG TABLET PO SCH (09:29)
[2022-08-11] MEDS: MIDODRINE HCL 5 MG TABLET PO SCH ×2 (09:30→17:30)
[2022-08-11] MEDS: AMINO ACIDS/PROTEIN HYDROLYS 30 ML LIQUID.PKT PO SCH ×2 (09:30→17:28)
[2022-08-11] MEDS: APIXABAN 5 MG TABLET PO SCH ×2 (09:30→22:29)
[2022-08-11] MEDS: POLYETHYLENE GLYCOL (HEALTHYLAX) 3350 17 GM PACKET PO SCH ×2 (09:30→22:29)
[2022-08-11] MEDS: ATORVASTATIN CA 40 MG TABLET (FP) PO SCH (22:29)
[2022-08-11] MEDS: SENNOSIDES 8.8 MG/5 ML SYRUP PO SCH (22:30)
[2022-08-12] MEDS: INSULIN SLIDING SCALE (NOVOLOG) 1 VIAL SQ SCH ×3 (07:36→16:46)
[2022-08-12] MEDS: INSULIN (LEVEMIR) 100 UNITS/ML UNITS SQ SCH ×2 (07:36→21:17)
[2022-08-12] MEDS: ALBUTEROL SO4 2.5/IPRATROPIUM 0.5 INH SOL 3 ML VIAL.NEB. NEB SCH ×4 (07:54→21:20)
[2022-08-12] MEDS: AMINO ACIDS/PROTEIN HYDROLYS 30 ML LIQUID.PKT PO SCH ×2 (08:57→17:16)
[2022-08-12] MEDS: PANTOPRAZOLE 40 MG TABLET PO SCH (09:00)
[2022-08-12] MEDS: MIDODRINE HCL 5 MG TABLET PO SCH ×2 (09:01→17:16)
[2022-08-12] MEDS: ESCITALOPRAM OXALATE 10 MG TABLET PO SCH (09:01)
[2022-08-12] MEDS: FUROSEMIDE 20 MG TABLET (FP) PO SCH (09:01)
[2022-08-12] MEDS: POLYETHYLENE GLYCOL (HEALTHYLAX) 3350 17 GM PACKET PO SCH ×2 (09:02→21:14)
[2022-08-12] MEDS: APIXABAN 5 MG TABLET PO SCH ×2 (09:02→21:20)
[2022-08-12] MEDS: SENNOSIDES 8.8 MG/5 ML SYRUP PO SCH (21:14)
[2022-08-12] MEDS: ATORVASTATIN CA 40 MG TABLET (FP) PO SCH (21:20)
[2022-08-13] MEDS: INSULIN SLIDING SCALE (NOVOLOG) 1 VIAL SQ SCH ×3 (06:37→17:10)
[2022-08-13] MEDS: INSULIN (LEVEMIR) 100 UNITS/ML UNITS SQ SCH ×2 (06:38→21:57)
[2022-08-13] MEDS: ALBUTEROL SO4 2.5/IPRATROPIUM 0.5 INH SOL 3 ML VIAL.NEB. NEB SCH (08:33)
[2022-08-13] MEDS: PANTOPRAZOLE 40 MG TABLET PO SCH (09:23)
[2022-08-13] MEDS: POLYETHYLENE GLYCOL (HEALTHYLAX) 3350 17 GM PACKET PO SCH ×2 (09:23→21:57)
[2022-08-13] MEDS: MIDODRINE HCL 5 MG TABLET PO SCH ×2 (09:23→17:16)
[2022-08-13] MEDS: AMINO ACIDS/PROTEIN HYDROLYS 30 ML LIQUID.PKT PO SCH ×2 (09:23→17:11)
[2022-08-13] MEDS: ESCITALOPRAM OXALATE 10 MG TABLET PO SCH (09:24)
[2022-08-13] MEDS: FUROSEMIDE 20 MG TABLET (FP) PO SCH (09:24)
[2022-08-13] MEDS: APIXABAN 5 MG TABLET PO SCH ×2 (09:24→21:57)
[2022-08-13] MEDS: ATORVASTATIN CA 40 MG TABLET (FP) PO SCH (21:57)
[2022-08-13] MEDS: SENNOSIDES 8.8 MG/5 ML SYRUP PO SCH (21:57)
[2022-08-14] MEDS: INSULIN (LEVEMIR) 100 UNITS/ML UNITS SQ SCH (06:06)
[2022-08-14] MEDS: INSULIN SLIDING SCALE (NOVOLOG) 1 VIAL SQ SCH ×2 (06:10→11:52)
[2022-08-14] MEDS: AMINO ACIDS/PROTEIN HYDROLYS 30 ML LIQUID.PKT PO SCH (08:50)
[2022-08-14] MEDS: FUROSEMIDE 20 MG TABLET (FP) PO SCH (09:57)
[2022-08-14] MEDS: ESCITALOPRAM OXALATE 10 MG TABLET PO SCH (09:57)
[2022-08-14] MEDS: PANTOPRAZOLE 40 MG TABLET PO SCH (09:57)
[2022-08-14] MEDS: MIDODRINE HCL 5 MG TABLET PO SCH (09:57)
[2022-08-14] MEDS: APIXABAN 5 MG TABLET PO SCH (09:57)
[2022-08-14] MEDS: POLYETHYLENE GLYCOL (HEALTHYLAX) 3350 17 GM PACKET PO SCH (10:00)
[2022-08-14 14:12] VITALS: BP 95/65; PULSE 74; RESP 19; TEMP 97.5
== END 2022-08-14 16:36 | DRG 870 ==
LOC: JER 08:46 → JERBED 11:21 → JICU 14:26 → J4S 08-04 20:28
PROVIDERS: ADMIT Family Medicine; ATTEND Family Medicine
PROC: 5A1955Z Respiratory Ventilation, Greater than 96 Consecutive Hours (ICD-10-PCS; principal; 2022-07-23)
PROC: 0BH17EZ Insertion of Endotracheal Airway into Trachea, Via Natural or Artificial Opening (ICD-10-PCS; 2022-07-23)
PROC: 03HY32Z Insertion of Monitoring Device into Upper Artery, Percutaneous Approach (ICD-10-PCS; 2022-07-23)
PROC: 4A133B1 Monitoring of Arterial Pressure, Peripheral, Percutaneous Approach (ICD-10-PCS; 2022-07-23)
PROC: 4A133J1 Monitoring of Arterial Pulse, Peripheral, Percutaneous Approach (ICD-10-PCS; 2022-07-23)
PROC: 5A1955Z Respiratory Ventilation, Greater than 96 Consecutive Hours (ICD-10-PCS; 2022-07-27)
PROC: 0BH17EZ Insertion of Endotracheal Airway into Trachea, Via Natural or Artificial Opening (ICD-10-PCS; 2022-07-27)
DX: A41.9 Sepsis, unspecified organism (principal); R65.21 Severe sepsis with septic shock; J80 Acute respiratory distress syndrome; J69.0 Pneumonitis due to inhalation of food and vomit; G61.81 Chronic inflammatory demyelinating polyneuritis; E87.20 Acidosis, unspecified; N17.9 Acute kidney failure, unspecified; N39.0 Urinary tract infection, site not specified; I82.411 Acute embolism and thrombosis of right femoral vein; I82.433 Acute embolism and thrombosis of popliteal vein, bilateral; J44.9 Chronic obstructive pulmonary disease, unspecified; E11.9 Type 2 diabetes mellitus without complications; G47.33 Obstructive sleep apnea (adult) (pediatric); Z86.73 Personal history of transient ischemic attack (TIA), and cerebral infarction without residual deficits; I25.10 Atherosclerotic heart disease of native coronary artery without angina pectoris; E78.5 Hyperlipidemia, unspecified; Z79.84 Long term (current) use of oral hypoglycemic drugs; E87.6 Hypokalemia; I48.0 Paroxysmal atrial fibrillation; E83.39 Other disorders of phosphorus metabolism; E83.42 Hypomagnesemia; I45.10 Unspecified right bundle-branch block; I44.0 Atrioventricular block, first degree; I34.0 Nonrheumatic mitral (valve) insufficiency; L89.629 Pressure ulcer of left heel, unspecified stage; E11.65 Type 2 diabetes mellitus with hyperglycemia; B96.1 Klebsiella pneumoniae [K. pneumoniae] as the cause of diseases classified elsewhere; K59.00 Constipation, unspecified; R33.8 Other retention of urine; I73.9 Peripheral vascular disease, unspecified; N40.0 Benign prostatic hyperplasia without lower urinary tract symptoms; N31.9 Neuromuscular dysfunction of bladder, unspecified
CPT/HCPCS: 0241U-QW; 36415; 36600; 70450-TC; 71045-TC-FY; 71260-TC; 71275-TC; 73610-TC-LT-FY; 73630-TC-LT; 74018-TC-FY; 74177-TC; 74230-TC-FY; 75635-TC; 80048; 80053; 81003; 82308; 82550; 82553; 82784; 82803; 82962; 83605; 83735; 83880; 83883; 84100; 84155; 84165; 84484; 85025; 85027; 85610; 85730; 86140; 86334; 86850; 86900; 86901; 87040; 87070; 87081; 87086; 87186; 87205; 92611-GN; 93005; 93010; 93970-TC; 94002; 94640; 94660; 97161-GP; 99291; 99292; C9803-CS; J3370; Q9967; U0003; U0005

== ENCOUNTER 2022-08-27 11:33 | Inpatient (IN) | payer OTHER ==
[2022-08-27 14:11] LABS: BASO % 0.7 % (0-2.0); EOS % 1.4 % (0-4.5); HEMATOCRIT 34.3 % (35.4-49); HEMOGLOBIN 10.8 GM/dL (11.7-16.9); LYMPH % 22.3 % (8-40); MCH 25.7 pg (25.7-33.7); MCHC 31.6 g/dl (32.0-35.9); MEAN CELL VOLUME 81.5 fl (80-96); MEAN PLT VOLUME 9.1 fl (7.5-11.1); MONO % 7.6 % (3.8-10.2); PLATELET COUNT 234 10^3/uL (134-434); RBC 4.21 M/mm3 (4.00-5.60); RDW 19.8 % (11.9-15.9)
[2022-08-27 14:18] LABS: INR 1.77 (0.83-1.09); PROTHROMBIN TIME (PATIENT) 20.4 SEC (9.7-13.0)
[2022-08-27 14:21] LABS: ACTIVATED PTT 34.9 SECONDS (25.2-36.5)
[2022-08-27 14:37] LABS: POTASSIUM 3.9 mmol/L (3.5-5.1)
[2022-08-27 14:39] LABS: BLOOD UREA NITROGEN 14.3 mg/dL (7-18); CALCIUM 8.7 mg/dL (8.5-10.1)
[2022-08-27 14:40] LABS: ALBUMIN 2.7 g/dl (3.4-5.0)
[2022-08-27 14:42] LABS: CREATININE 0.5 mg/dL (0.55-1.3)
[2022-08-27 14:44] LABS: BILIRUBIN,TOTAL 0.6 mg/dL (0.2-1); TOT PROT 6.6 g/dl (6.4-8.2)
[2022-08-27 14:51] LABS: ERYTHROCYTE SEDIMENTATION RATE 27 mm/hr (0-20)
[2022-08-27] MEDS ORDERED: VANCOMYCIN 1 GM in D5W (PRE-DOCKED) 1,000 MG/250 ML (RESTRICTED TO ID ONLY IVPB ONE (15:21)
[2022-08-27] MEDS ORDERED: PIPERACILLIN/TAZOB 4.5 GM 4.5 GM in DEXTROSE 5%-WATER 100 ML IVPB ONE (15:28)
[2022-08-27] MEDS ORDERED: VANCOMYCIN/WATER FOR INJ (PEG) 1,000 MG/200 ML BAG IVPB ONE (15:45)
[2022-08-27] MEDS ORDERED: PIPERACILLIN/TAZOB 4.5 GM 4.5 GM/100 ML BAG IVPB ONE (15:45)
[2022-08-27] MEDS ORDERED: DOCUSATE NA 100 MG/10 ML UNIT-DOSE CUPS PO PRN ×2 (16:23→16:42)
[2022-08-27] MEDS ORDERED: ALBUTEROL SO4 2.5/IPRATROPIUM 0.5 INH SOL 3 ML VIAL.NEB. NEB PRN (16:23)
[2022-08-27] MEDS ORDERED: ACETAMINOPHEN 325 MG TABLET (FP) PO PRN (16:26)
[2022-08-27] MEDS: AMINO ACIDS/PROTEIN HYDROLYS 30 ML LIQUID.PKT PO SCH (18:57)
[2022-08-27] MEDS: MIDODRINE HCL 2.5 MG TABLET PO SCH (18:57)
[2022-08-27] MEDS: MELATONIN 5 MG TABLETS PO SCH (21:37)
[2022-08-27] MEDS: APIXABAN 5 MG TABLET PO SCH (21:37)
[2022-08-27] MEDS: SENNOSIDES/DOCUSATE COMBO (SENNA PLUS) TABLET (UD) PO SCH (21:38)
[2022-08-27] MEDS: POLYETHYLENE GLYCOL (HEALTHYLAX) 3350 17 GM PACKET PO SCH (21:38)
[2022-08-27] MEDS: ATORVASTATIN CA 40 MG TABLET (FP) PO SCH (21:38)
[2022-08-27] MEDS: INSULIN (LEVEMIR) 100 UNITS/ML UNITS SQ SCH (21:38)
[2022-08-27] MEDS ORDERED: SENNOSIDES 8.8 MG/5 ML SYRUP PO SCH (22:00)
[2022-08-27 23:43] LABS: EPI CELLS 16 /uL (0-25.1); HYALINE CASTS 3 /uL (0-3.1); PH,URINE 6.5 (5.0-8.0); URINE APPEARANCE TURBID; URINE BACTERIA 752 /uL (0-1359); URINE BILIRUBIN NEGATIVE (NEGATIVE); URINE COLOR DK YELLOW; URINE GLUCOSE (UA) NEGATIVE (NEGATIVE); URINE KETONE NEGATIVE (NEGATIVE); URINE LEUK ESTERASE 3+ (NEGATIVE); URINE NITRITE NEGATIVE (NEGATIVE); URINE PROTEIN 1+ (NEGATIVE); URINE WBC 5744 /uL (0-25.8)
[2022-08-27 23:54] LABS: URINE RBC 81 /uL (0-23.9)
[2022-08-28] MEDS: INSULIN (LEVEMIR) 100 UNITS/ML UNITS SQ SCH ×2 (06:49→22:55)
[2022-08-28 08:18] LABS: BASO % 0.3 % (0-2.0); HEMATOCRIT 33.2 % (35.4-49); HEMOGLOBIN 10.4 GM/dL (11.7-16.9); LYMPH % 28.8 % (8-40); MCH 25.7 pg (25.7-33.7); MCHC 31.5 g/dl (32.0-35.9); MEAN CELL VOLUME 81.7 fl (80-96); MEAN PLT VOLUME 8.8 fl (7.5-11.1); MONO % 10.3 % (3.8-10.2); NEUT % 58.6 % (42.8-82.8); PLATELET COUNT 212 10^3/uL (134-434); RBC 4.06 M/mm3 (4.00-5.60); RDW 19.5 % (11.9-15.9); WHITE BLOOD COUNT 4.7 K/mm3 (4.0-10.0)
[2022-08-28 08:32] LABS: POTASSIUM 4.5 mmol/L (3.5-5.1)
[2022-08-28 08:35] LABS: ALBUMIN 2.4 g/dl (3.4-5.0); BLOOD UREA NITROGEN 13.9 mg/dL (7-18); CALCIUM 8.8 mg/dL (8.5-10.1)
[2022-08-28 08:38] LABS: CREATININE 0.5 mg/dL (0.55-1.3)
[2022-08-28 08:40] LABS: BILIRUBIN,TOTAL 0.6 mg/dL (0.2-1); TOT PROT 6.2 g/dl (6.4-8.2)
[2022-08-28] MEDS ORDERED: LUTEIN PO SCH (10:00)
[2022-08-28] MEDS ORDERED: FOLIC ACID PO SCH (10:00)
[2022-08-28] MEDS ORDERED: [UNRECOGNIZED DRUG - OTHER] PO SCH (10:00)
[2022-08-28] MEDS ORDERED: [UNRECOGNIZED DRUG - SUPPLY] TP SCH (10:00)
[2022-08-28] MEDS ORDERED: MULTIVIT MIN PO SCH (10:00)
[2022-08-28] MEDS: MIDODRINE HCL 2.5 MG TABLET PO SCH ×2 (10:49→19:08)
[2022-08-28] MEDS: FUROSEMIDE 20 MG TABLET (FP) PO SCH (10:49)
[2022-08-28] MEDS: APIXABAN 5 MG TABLET PO SCH ×2 (10:49→22:54)
[2022-08-28] MEDS: PANTOPRAZOLE 40 MG TABLET PO SCH (10:49)
[2022-08-28] MEDS: MULTIVITAMINS (DAILY MVI) TABLET (FP) PO SCH (10:49)
[2022-08-28] MEDS: ESCITALOPRAM OXALATE 10 MG TABLET PO SCH (10:49)
[2022-08-28] MEDS: AMINO ACIDS/PROTEIN HYDROLYS 30 ML LIQUID.PKT PO SCH ×2 (10:50→17:04)
[2022-08-28] MEDS: POLYETHYLENE GLYCOL (HEALTHYLAX) 3350 17 GM PACKET PO SCH ×2 (10:50→22:54)
[2022-08-28] MEDS: VANCOMYCIN/WATER FOR INJ (PEG) 1,000 MG/200 ML BAG IVPB SCH (17:04)
[2022-08-28] MEDS: PIPERACILLIN/TAZOB 3.375 GM 3.375 GM in DEXTROSE 5%-WATER - 50 ML IVPB SCH (20:26)
[2022-08-28] MEDS: ATORVASTATIN CA 40 MG TABLET (FP) PO SCH (22:53)
[2022-08-28] MEDS: SENNOSIDES/DOCUSATE COMBO (SENNA PLUS) TABLET (UD) PO SCH (22:53)
[2022-08-28] MEDS: MELATONIN 5 MG TABLETS PO SCH (22:54)
[2022-08-29] MEDS: PIPERACILLIN/TAZOB 3.375 GM 3.375 GM in DEXTROSE 5%-WATER - 50 ML IVPB SCH ×3 (02:12→19:06)
[2022-08-29] MEDS: VANCOMYCIN/WATER FOR INJ (PEG) 1,000 MG/200 ML BAG IVPB SCH ×2 (06:00→16:30)
[2022-08-29] MEDS: INSULIN (LEVEMIR) 100 UNITS/ML UNITS SQ SCH ×2 (06:30→21:51)
[2022-08-29] MEDS: PANTOPRAZOLE 40 MG TABLET PO SCH (09:25)
[2022-08-29] MEDS: APIXABAN 5 MG TABLET PO SCH ×2 (09:25→21:22)
[2022-08-29] MEDS: ESCITALOPRAM OXALATE 10 MG TABLET PO SCH (09:26)
[2022-08-29] MEDS: POLYETHYLENE GLYCOL (HEALTHYLAX) 3350 17 GM PACKET PO SCH ×2 (09:27→21:27)
[2022-08-29] MEDS: MULTIVITAMINS (DAILY MVI) TABLET (FP) PO SCH (09:27)
[2022-08-29] MEDS: FUROSEMIDE 20 MG TABLET (FP) PO SCH (09:27)
[2022-08-29] MEDS: MIDODRINE HCL 2.5 MG TABLET PO SCH ×2 (09:27→17:11)
[2022-08-29] MEDS: AMINO ACIDS/PROTEIN HYDROLYS 30 ML LIQUID.PKT PO SCH ×2 (09:38→17:11)
[2022-08-29] MEDS: COLLAGENASE CLOSTRIDIUM HIST. 30 GRAMS TUBE TP SCH (15:41)
[2022-08-29] MEDS: ATORVASTATIN CA 40 MG TABLET (FP) PO SCH (21:22)
[2022-08-29] MEDS: MELATONIN 5 MG TABLETS PO SCH (21:22)
[2022-08-29] MEDS: SENNOSIDES/DOCUSATE COMBO (SENNA PLUS) TABLET (UD) PO SCH (21:22)
[2022-08-29 22:40] VITALS: RESP 18
[2022-08-30] MEDS: PIPERACILLIN/TAZOB 3.375 GM 3.375 GM in DEXTROSE 5%-WATER - 50 ML IVPB SCH ×3 (02:12→17:52)
[2022-08-30] MEDS: VANCOMYCIN/WATER FOR INJ (PEG) 1,000 MG/200 ML BAG IVPB SCH (05:50)
[2022-08-30] MEDS: INSULIN (LEVEMIR) 100 UNITS/ML UNITS SQ SCH ×2 (08:15→21:57)
[2022-08-30] MEDS: APIXABAN 5 MG TABLET PO SCH ×2 (09:45→21:46)
[2022-08-30] MEDS: PANTOPRAZOLE 40 MG TABLET PO SCH (09:45)
[2022-08-30] MEDS: MIDODRINE HCL 2.5 MG TABLET PO SCH ×2 (09:45→17:52)
[2022-08-30] MEDS: MULTIVITAMINS (DAILY MVI) TABLET (FP) PO SCH (09:45)
[2022-08-30] MEDS: FUROSEMIDE 20 MG TABLET (FP) PO SCH (09:45)
[2022-08-30] MEDS: AMINO ACIDS/PROTEIN HYDROLYS 30 ML LIQUID.PKT PO SCH ×2 (09:45→17:52)
[2022-08-30] MEDS: POLYETHYLENE GLYCOL (HEALTHYLAX) 3350 17 GM PACKET PO SCH ×2 (09:45→21:47)
[2022-08-30] MEDS: ESCITALOPRAM OXALATE 10 MG TABLET PO SCH (09:45)
[2022-08-30] MEDS: COLLAGENASE CLOSTRIDIUM HIST. 30 GRAMS TUBE TP SCH (09:46)
[2022-08-30 14:56] VITALS: BMI 23.3
[2022-08-30] MEDS: BACITRACIN ZINC 15 GM TUBE TOPICAL OINTMENT TP SCH (21:45)
[2022-08-30] MEDS: ATORVASTATIN CA 40 MG TABLET (FP) PO SCH (21:46)
[2022-08-30] MEDS: MELATONIN 5 MG TABLETS PO SCH (21:46)
[2022-08-30] MEDS: SENNOSIDES/DOCUSATE COMBO (SENNA PLUS) TABLET (UD) PO SCH (21:46)
[2022-08-30] MEDS ORDERED: BACITRACIN ZINC 15 GM TUBE TOPICAL OINTMENT TP SCH (22:00)
[2022-08-31] MEDS: PIPERACILLIN/TAZOB 3.375 GM 3.375 GM in DEXTROSE 5%-WATER - 50 ML IVPB SCH ×3 (01:28→17:16)
[2022-08-31] MEDS: INSULIN SLIDING SCALE (NOVOLOG) 1 VIAL SQ SCH ×4 (06:22→21:55)
[2022-08-31] MEDS: INSULIN (LEVEMIR) 100 UNITS/ML UNITS SQ SCH ×2 (06:22→21:26)
[2022-08-31] MEDS: GABAPENTIN 100 MG CAPSULE PO SCH ×3 (06:44→21:25)
[2022-08-31] MEDS: AMINO ACIDS/PROTEIN HYDROLYS 30 ML LIQUID.PKT PO SCH ×2 (09:10→17:16)
[2022-08-31] MEDS: PANTOPRAZOLE 40 MG TABLET PO SCH (09:10)
[2022-08-31] MEDS: ESCITALOPRAM OXALATE 10 MG TABLET PO SCH (09:10)
[2022-08-31] MEDS: MULTIVITAMINS (DAILY MVI) TABLET (FP) PO SCH (09:10)
[2022-08-31] MEDS: APIXABAN 5 MG TABLET PO SCH ×2 (09:10→21:25)
[2022-08-31] MEDS: COLLAGENASE CLOSTRIDIUM HIST. 30 GRAMS TUBE TP SCH (09:11)
[2022-08-31] MEDS: BACITRACIN ZINC 15 GM TUBE TOPICAL OINTMENT TP SCH ×2 (09:11→21:25)
[2022-08-31] MEDS: FUROSEMIDE 20 MG TABLET (FP) PO SCH (09:11)
[2022-08-31] MEDS: MIDODRINE HCL 2.5 MG TABLET PO SCH ×2 (09:11→17:16)
[2022-08-31] MEDS: POLYETHYLENE GLYCOL (HEALTHYLAX) 3350 17 GM PACKET PO SCH ×2 (09:12→21:26)
[2022-08-31] MEDS: METHENAMINE 1 GM MC SCH ×3 (10:42→10:44)
[2022-08-31] MEDS: SENNOSIDES 8.8 MG/5 ML SYRUP PO SCH (10:44)
[2022-08-31] MEDS: MINERAL OIL/PET HY-PHL TOPICAL OINTMENT 454 GM JAR TP SCH (14:06)
[2022-08-31] MEDS: MELATONIN 5 MG TABLETS PO SCH (21:24)
[2022-08-31] MEDS: ATORVASTATIN CA 40 MG TABLET (FP) PO SCH (21:25)
[2022-08-31] MEDS: SENNOSIDES/DOCUSATE COMBO (SENNA PLUS) TABLET (UD) PO SCH (21:25)
[2022-09-01] MEDS: PIPERACILLIN/TAZOB 3.375 GM 3.375 GM in DEXTROSE 5%-WATER - 50 ML IVPB SCH ×2 (02:46→10:38)
[2022-09-01] MEDS: GABAPENTIN 100 MG CAPSULE PO SCH (05:52)
[2022-09-01] MEDS: INSULIN SLIDING SCALE (NOVOLOG) 1 VIAL SQ SCH ×2 (06:12→12:11)
[2022-09-01] MEDS: INSULIN (LEVEMIR) 100 UNITS/ML UNITS SQ SCH (06:18)
[2022-09-01 07:44] VITALS: PULSE 73
[2022-09-01 07:54] VITALS: BP 129/76; TEMP 97.6
[2022-09-01] MEDS ORDERED: TAMSULOSIN HCL 0.4 MG CAP PO SCH (08:30)
[2022-09-01 09:45] LABS: HEMATOCRIT 35.4 % (35.4-49); HEMOGLOBIN 11.1 GM/dL (11.7-16.9); MCH 25.6 pg (25.7-33.7); MCHC 31.4 g/dl (32.0-35.9); MEAN CELL VOLUME 81.6 fl (80-96); MEAN PLT VOLUME 8.8 fl (7.5-11.1); PLATELET COUNT 233 10^3/uL (134-434); RBC 4.34 M/mm3 (4.00-5.60); RDW 19.2 % (11.9-15.9)
[2022-09-01 10:07] LABS: POTASSIUM 3.8 mmol/L (3.5-5.1)
[2022-09-01 10:14] LABS: BLOOD UREA NITROGEN 16.7 mg/dL (7-18); CALCIUM 8.8 mg/dL (8.5-10.1)
[2022-09-01 10:18] LABS: CREATININE 0.5 mg/dL (0.55-1.3)
[2022-09-01] MEDS: PANTOPRAZOLE 40 MG TABLET PO SCH (10:37)
[2022-09-01] MEDS: FUROSEMIDE 20 MG TABLET (FP) PO SCH (10:37)
[2022-09-01] MEDS: APIXABAN 5 MG TABLET PO SCH (10:37)
[2022-09-01] MEDS: MIDODRINE HCL 2.5 MG TABLET PO SCH (10:37)
[2022-09-01] MEDS: ESCITALOPRAM OXALATE 10 MG TABLET PO SCH (10:37)
[2022-09-01] MEDS: AMINO ACIDS/PROTEIN HYDROLYS 30 ML LIQUID.PKT PO SCH (10:38)
[2022-09-01] MEDS: POLYETHYLENE GLYCOL (HEALTHYLAX) 3350 17 GM PACKET PO SCH (10:38)
[2022-09-01] MEDS: MULTIVITAMINS (DAILY MVI) TABLET (FP) PO SCH (10:38)
[2022-09-01] MEDS: MINERAL OIL/PET HY-PHL TOPICAL OINTMENT 454 GM JAR TP SCH (10:41)
[2022-09-01] MEDS: COLLAGENASE CLOSTRIDIUM HIST. 30 GRAMS TUBE TP SCH (10:41)
[2022-09-01] MEDS: BACITRACIN ZINC 15 GM TUBE TOPICAL OINTMENT TP SCH (10:41)
== END 2022-09-01 14:06 | DRG 593 ==
LOC: JER 11:33 → JERBED 15:26 → OBSVTOIN 16:26 → J8W 17:48
PROVIDERS: ADMIT Family Medicine; ATTEND Family Medicine
PROC: 02HV33Z Insertion of Infusion Device into Superior Vena Cava, Percutaneous Approach (ICD-10-PCS; principal; 2022-09-01)
PROC: B548ZZA Ultrasonography of Superior Vena Cava, Guidance (ICD-10-PCS; 2022-09-01)
DX: L89.620 Pressure ulcer of left heel, unstageable (principal); E87.29 Other acidosis; I50.42 Chronic combined systolic (congestive) and diastolic (congestive) heart failure; M86.9 Osteomyelitis, unspecified; G61.81 Chronic inflammatory demyelinating polyneuritis; E87.3 Alkalosis; J90 Pleural effusion, not elsewhere classified; S91.302A Unspecified open wound, left foot, initial encounter; L89.899 Pressure ulcer of other site, unspecified stage; E11.69 Type 2 diabetes mellitus with other specified complication; E11.40 Type 2 diabetes mellitus with diabetic neuropathy, unspecified; R33.9 Retention of urine, unspecified; E78.5 Hyperlipidemia, unspecified; J44.9 Chronic obstructive pulmonary disease, unspecified; E11.621 Type 2 diabetes mellitus with foot ulcer; G47.33 Obstructive sleep apnea (adult) (pediatric); I48.91 Unspecified atrial fibrillation; I11.0 Hypertensive heart disease with heart failure; K21.9 Gastro-esophageal reflux disease without esophagitis; Z86.73 Personal history of transient ischemic attack (TIA), and cerebral infarction without residual deficits; T14.90XA Injury, unspecified, initial encounter; X58.XXXA Exposure to other specified factors, initial encounter; Y93.9 Activity, unspecified; Y92.89 Other specified places as the place of occurrence of the external cause; Y99.9 Unspecified external cause status
CPT/HCPCS: 36415; 36569; 73630-TC-LT; 73630-TC-RT-FY; 78315-TC; 80048; 80053; 81003; 82962; 83036; 85025; 85027; 85610; 85651; 85730; 86140; 86850; 86900; 86901; 87040; 87086; 87186; 87635; 93926-TC; 94660; 99285-25; A9503; G0378

== ENCOUNTER 2022-11-11 02:09 | Emergency (ER) | payer OTHER ==
[2022-11-11 02:17] VITALS: BP 00/00; BMI 31.6
== END 2022-11-11 06:49 | disposition expired ==
LOC: JER 02:09
PROC: 0BH17EZ Insertion of Endotracheal Airway into Trachea, Via Natural or Artificial Opening (ICD-10-PCS; principal; 2022-11-11)
PROC: 5A02216 Assistance with Cardiac Output using Other Pump, Continuous (ICD-10-PCS; 2022-11-11)
DX: I46.9 Cardiac arrest, cause unspecified (principal)
CPT/HCPCS: 99283-25